=== PATIENT | female | born 1980 | race Caucasian/White ===

== ENCOUNTER → 2022-08-20 | Outpatient (CLI) | payer OTHER, SELFPAY ==
--- NOTE | 2022-08-20 07:35 | MRI_ITS ---
EXAM: MR LEFT LOWER EXTREMITY WITHOUT INTRAVENOUS CONTRAST, KNEE CLINICAL INDICATION: Pain TECHNIQUE: Multiplanar and multisequence MR images of the left knee without intravenous contrast. This report was created using [employer] report generation technology. COMPARISON: None. FINDINGS: BONES/JOINTS: Visualized amount of suprapatellar joint fluid. No fracture. No synovial hypertrophy. No intra-articular body. No bone marrow signal. EXTENSOR MECHANISM: Unremarkable. MEDIAL MENISCUS: Unremarkable. LATERAL MENISCUS: Unremarkable. MEDIAL CAPSULE/SUPPORTING STRUCTURES: Unremarkable. Intact. LATERAL CAPSULE/SUPPORTING STRUCTURES: Unremarkable. Lateral collateral ligamentous complex, inclusive of the popliteal tendon, are intact. ANTERIOR CRUCIATE LIGAMENT: Unremarkable. Intact. POSTERIOR CRUCIATE LIGAMENT: Unremarkable. Intact. MUSCLES: Unremarkable. CARTILAGE: Unremarkable. No focal chondral defects. FLUID: Very small Al''s cyst. No joint effusion. OTHER SOFT TISSUES: Mild prepatellar subcutaneous edema with no organized fluid collections. MRI/Lower Ext Joint Only (Routine) IMPRESSION: 1. Very small Al''s cyst without significant joint effusion. 2. No other significant internal derangement of the knee. Electronically Signed: John Terrell MD at 2:57 EDT ,
== END | disposition home or self-care (01) ==
PROVIDERS: PCP Family Medicine
DX: M23.92 Unspecified internal derangement of left knee (principal)
CPT/HCPCS: 73721

== ENCOUNTER 2024-03-14 08:10 | Emergency (ER) | payer OTHER, SELFPAY ==
[2024-03-14 08:12] VITALS: BP 127/93; PULSE 88; RESP 16; TEMP 35.7; O2SAT 100; BMI 32.1
--- NOTE | 2024-03-14 08:53 | RAD_ITS ---
STUDY: X-RAY - RIGHT WRIST REASON FOR EXAM: Female, 43 years old. INJURY, PAIN TECHNIQUE: 3 views of the right wrist were obtained. COMPARISON: None. FINDINGS: Normal visualized distal radius and ulna. Normal radiocarpal articulation. Normal distal radioulnar articulation. Normal carpal bones. Normal carpal articulations. Normal carpometacarpal articulation of the thumb. Normal second through fifth carpometacarpal articulations. Normal visualized metacarpal bones. The soft tissue structures are unremarkable. There is no demonstrated acute fracture. RAD/Wrist min 3 Views IMPRESSION: Normal x-ray examination of the right wrist. Electronically Signed: Paxton Harvey MD at 9:11 EDT ,
--- OUTSIDE RECORDS SUMMARY | 2024-03-14 10:40 | XMS RPT_ITS | CCD ---
Author Organization [facility] Care Team Providers Care Coremaker Supervisor Name Role Phone Brock Crane MD Primary Care Provider BROCK CRANE Attending BROCK Chaparro Primary Care BROCK Chaparro Referring BROCK Chaparro Primary Care Brock Chaparro MD Primary Care Provider Allergies Allergy Classification Reported Allergen(s) Allergy Type Date of Onset Reaction(s) Facility (16 sources) Cat; Translations: [CATS] Allergy to substance 04-15-201 3 Swelling, Itching [facility] (16 sources) Dog; Translations: [DOGS] Allergy to substance 04-15-201 3 Swelling, Itching [facility] (16 sources) Seasonal allergy; Translations: [SEASONAL ALLERGIES] Allergy to substance 04-15-201 3 Other: See Comments, Unknown [facility] (14 sources) Grass pollen; Translations: [GRASS POLLEN] Drug Allergy 7 Other: See Comments, Unknown [facility] (14 sources) Lactose; Translations: [LACTOSE] Drug Allergy 7 Other: See Comments, Unknown [facility] (14 sources) Hay Fever And Allergy Relief; Translations: [HAY FEVER AND ALLERGY RELIEF] Drug Allergy 7 Other: See Comments, Unknown [facility] (6 sources) house dust allergenic extract; Translations: [HOUSE DUST] Drug Allergy 3 Unknown [facility] (6 sources) Mold Extract; Translations: [MOLD] Drug Allergy 3 Unknown [facility] (6 sources) Tree and shrub pollen; Translations: [TREE AND SHRUB POLLEN] Drug Allergy 3 Unknown [facility] Medications Current Medications Medication Drug Class(es) Dates Sig (Normalized) Sig (Original) [id number] 200 actuat albuterol 0.09 mg/actuat metered dose inhaler (15 sources) beta2-Adrenergic Agonist Start: 10-30-2021 End: 05-25-2022 take 2 puff(s) by inhalation four times daily as needed albuterol HFA (PROVENTIL HFA, VENTOLIN HFA) 90 mcg/actuation inhaler Inhale 200,000 Puffs as instructed four times daily as needed. INHALE 2 PUFFS DIRECTED FOUR TIMES A DAY NEEDED 1 Each 3 05/25/2022 Active Comment on above: Inhale 18 g as instr ucted four times daily as needed. INHALE 2 PUFFS DIRECTED FOUR TIMES A DAY NEEDED Inhale 200,000 Puffs as instructed four times daily as needed. INHALE 2 PUFFS DIRECTED FOUR TIMES A DAY NEEDED fluticasone propionate 0.05 mg/actuat metered dose nasal spray (16 sources) Corticosteroid Start: 11-23-2021 End: 01-17-2023 take 1 spray(s) nasal route once daily as needed fluticasone (FLONASE) 50 mcg/actuation nasal spray USE 1 SPRAY IN EACH NOSTRIL DAILY NEEDED 48 g 5 01/17/2023 Active Comment on above: USE 1 SPRAY IN EACH NOSTRIL DAILY NEEDED LORazepam 0.5 mg oral tablet (6 sources) Benzodiazepine Start: 10-31-2021 End: 08-23-2022 take 0.5 mg by mouth every eight hours as needed for anxiety and anxiety LORazepam (ATIVAN) 0.5 mg Indications: Anxiety Take 1 tablet by mouth every 8 hours as needed for up to 90 days. 90 tablet 2 05/25/2022 08/23/2022 Active Comment on above: Take 1 tablet by elba th every 8 hours as needed. Take 1 tablet by elba th every 8 hours as needed for up to 90 days. meloxicam 15 mg oral tablet (8 sources) Nonsteroidal Anti-inflammatory Drug Start: 12-09-2022 take 5 tablets by mouth once daily for pain meloxicam (MOBIC) 15 mg tablet Indications: Primary osteoarthritis of both knees , Chronic pain of both knees 15 MG ORALLY DAILY FOR PAIN DO NOT TAKE IN CONJUNCTION WITH OTHER NSAIDS. TYLENOL IS OKAY. 30 tablet 5 12/09/2022 Active Start: 08-25-2022 meloxicam (MOB IC) 15 mg tablet 15 MG ORALLY DAILY FOR PAIN DO NOT TAKE IN CONJUNCTION WITH OTHER NSAIDS. TYLENOL IS OKAY. 0 08/25/2022 Active Comment on above: 15 MG ORALLY DAILY F OR PAIN DO NOT TAKE IN CONJUNCTION WITH OTHER NSAIDS. TYLENOL IS OKAY. montelukast 10 mg oral tablet (15 sources) Leukotriene Receptor Antagonist Start: 10-03-19 End: 08-23-19 24 take 1 tablet by mouth once daily montelukast (SINGULAIR) 10 mg tablet Take 1 tablet by mouth once daily. 90 tablet 3 08/23/2023 Active Comment on above: Take 10 mg by mouth once daily. Take 1 tablet by elba th once daily. spironolactone 100 mg oral tablet (18 sources) Aldosterone Antagonist Start: 12-03-19 End: 08-23-19 25 take 1 tablet by mouth once daily spironolactone (ALDACTONE) 100 mg tablet Take 1 tablet by mouth once daily. 90 tablet 3 08/23/2023 08/22/2024 Active Start: 03-07-2022 End: 12-08-2022 take 1 tablet by mouth once daily at bedtime spironolactone (ALDACTONE) 50 mg tablet Take 1 tablet by mouth daily at bedtime. 90 tablet 3 05/25/2022 12/08/2022 Discontinued Start: 12-07-2021 End: 05-25-2022 take 1 tablet by mouth once daily, then take 1 tablet by mouth once daily in the morning spironolactone (ALDACTONE) 100 mg tablet Take 1 tablet by mouth once daily. TAKE 1 TABLET BY MOUTH EVERY DAY IN THE MORNING 90 tablet 3 12/10/2021 05/25/2022 Discontinued (Course of therapy completed) Comment on above: Take 1 tablet by elba th once daily. TAKE 1 TABLET BY MOUTH EVERY DAY IN THE MORNING Take 1 tablet by elba th daily at bedtime. Take 50 mg by mouth daily at bedtime. Take 1 tablet by elba th once daily. Completed/Discontinued Medications Medication Drug Class(es) Dates Sig (Normalized) Sig (Original) escitalopram 10 mg oral tablet (2 sources) Serotonin Reuptake Inhibitor Start: 12-06-2016 End: 05-25-2022 take 1 tablet by mouth once daily escitalopram oxalate (LEXAPRO) 10 mg tablet Take 10 mg by mouth once daily. TAKE 1 TABLET BY MOUTH ONCE A DAY 0 12/06/2016 05/25/2022 Discontinued Comment on above: Take 10 mg by mouth once daily. TAKE 1 TABLET BY MOUTH ONCE A DAY fexofenadine (3 sources) Histamine-1 Receptor Antagonist End: 05-25-2022 FEXOFENADINE HCL (FELTON ORAL) Take by mouth. 0 05/25/2022 Discontinued FEXOFENADINE HCL (FELTON ORAL) Take by mouth. 0 Active Comment on above: Take by mouth. 1 ml triamcinolone acetonide 40 mg/ml injection (1 source) Corticosteroid Start: 08-23-19 End: 08-23-19 triamcinolone acetonide 60 mg injection (KeNALog 40) valACYclovir 500 mg oral tablet (3 sources) Herpesvirus Nucleoside Analog DNA Polymerase Inhibitor, Herpes Simplex Virus Nucleoside Analog DNA Polymerase Inhibitor, Herpes Zoster Virus Nucleoside Analog DNA Polymerase Inhibitor End: 05-25-19 take 1 tablet by mouth once daily valACYclovir 500 mg tablet Take 500 mg by mouth once daily. 0 05/25/2022 Discontinued Comment on above: Take 500 mg by mouth once daily. Problems Active Problems Problem Classification Problem Date Documented Date Episodic/Chronic Allergic reactions (2 sources) Urticaria; Translations: [Urticaria, unspecified] Onset: 08-23-2023 08-23-2023 Episodic Anxiety disorders (20 sources) Anxiety; Translations: [Anxiety disorder, unspecified] Onset: 12-06-2016 Chronic Osteoarthritis (2 sources) Primary gonarthrosis, bilateral; Translations: [Bilateral primary osteoarthritis of knee] Chronic Other non-traumatic joint disorders (1 source) Pain in right knee; Translations: [Pain in joint, lower leg] 12-30-2023 Episodic Other screening for suspected conditions (not mental disorders or infectious disease) (7 sources) Patient encounter status; Translations: [Encounter for screening for diseases of the blood and blood-forming organs and certain disorders involving the immune mechanism] Onset: 08-23-2023 08-23-2023 Episodic Other upper respiratory disease (12 sources) Allergic rhinitis; Translations: [Allergic rhinitis, unspecified] Onset: 12-06-2016 05-27-2022 Chronic Other upper respiratory disease (1 source) Allergic rhinitis due to pollen; Translations: [Allergic rhinitis due to pollen] 08-23-2023 Chronic Other upper respiratory disease (1 source) Allergic rhinitis due to pollen; Translations: [Allergic rhinitis due to pollen, unspecified seasonality] Onset: 05-27-2022 Chronic Screening and history of mental health and substance abuse codes (1 source) Encounter for screening for depression; Translations: [Screening for depression] Onset: 08-23-2023 Episodic Unclassified (1 source) OPENED IN ERROR 08-24-2023 Past or Other Problems Problem Classification Problem Date Documented Da te Episodic/Chronic Other skin disorders (11 sources) Acne; Translations: [Acne, unspecified] Onset: 12-06-2016 06-06-2022 Episodic Results Test Name Value Interpretation Reference Range Facil ity CBC W Auto Differential pane l (Bld)on 08-23-2023 Basophils (Bld) [#/Vol] 0.05 10*3/uL <0.11 k/uL [facility] Basophils/100 WBC (Bld) 0.7 % [facility] Differential cell count method Nom (Bld) Auto [facility] Eosinophils (Bld) [#/Vol] 0.31 10*3/uL <0.46 k/uL [facility] Eosinophils/100 WBC (Bld) 4.4 % [facility] Erythrocyte distribution width (RBC) [Ratio] 12.5 % 11.5 - 15.0 % [facility] Hematocrit (Bld) [Volume fraction] 41.7 % 36.0 - 46.0 % [facility] Hemoglobin (Bld) [Mass/Vol] 13.8 g/dL 11.5 - 15.5 g/dL [facility] Immature granulocytes (Bld) [#/Vol] 0.03 10*3/uL <0.10 k/uL [facility] Immature granulocytes/100 WBC (Bld) 0.4 % [facility] Lymphocytes (Bld) [#/Vol] 1.26 10*3/uL 1.00 - 4.00 k/uL [facility] Lymphocytes/100 WBC (Bld) 17.8 % [facility] MCH (RBC) [Entitic mass] 31.2 pg 26.0 - 34.0 pg [facility] MCHC (RBC) [Mass/Vol] 33.1 g/dL 30.5 - 36.0 g/dL [facility] MCV (RBC) [Entitic vol] 94.1 fL 80.0 - 100.0 fL [facility] Monocytes (Bld) [#/Vol] 0.49 10*3/uL <0.87 k/uL [facility] Monocytes/100 WBC (Bld) 6.9 % [facility] Neutrophils (Bld) [#/Vol] 4.94 10*3/uL 1.45 - 7.50 k/uL [facility] Neutrophils/100 WBC (Bld) 69.8 % [facility] Platelet mean volume (Bld) [Entitic vol] 9.6 fL 9.0 - 12.7 fL [facility] Platelets (Bld) [#/Vol] 254 10*3/uL 150 - 400 k/uL [facility] RBC (Bld) [#/Vol] 4.43 10*6/uL 3.90 - 5.2 0 m/uL [facility] WBC (Bld) [#/Vol] 7.08 10*3/uL 3.70 - 11. 00 k/uL [facility] Basophils (Bld) [#/Vol] 0.05 10*3/uL Normal <0.11 [facility] Comment on above: Order Comment: Speci men Type: BLOOD SPECIMEN Ordering Facility: [facility] Address: [address] [place] [address] Performed By: #### 5 7021-8 #### [facility] CLIA [id number] [address] [place] [address] STATES OF [facility] Basophils/100 WBC (Bld) 0.7 % Normal [facility] Comment on above: Order Comment: Speci men Type: BLOOD SPECIMEN Ordering Facility: [facility] Address: [address] [place] [address] Performed By: #### 5 7021-8 #### [facility] CLIA [id number] [address] [place] [address] OF [facility] Differential cell count method Nom (Bld) Auto Normal [facility] Comment on above: Order Comment: Speci men Type: BLOOD SPECIMEN Ordering Facility: [facility] Address: [address] [place] [address] Performed By: #### 5 7021-8 #### [facility] CLIA [id number] [address] [place] [address] [place] Eosinophils (Bld) [#/Vol] 0.31 10*3/uL Normal <0.46 [facility] Comment on above: Order Comment: Speci men Type: BLOOD SPECIMEN Ordering Facility: [facility] Address: [address] [place] [address] Performed By: #### 5 7021-8 #### [facility] CLIA [id number] [address] [address] [place] Eosinophils/100 WBC (Bld) 4.4 % Normal [facility] Comment on above: Order Comment: Speci men Type: BLOOD SPECIMEN Ordering Facility: [facility] Address: [address] [place] [address] Performed By: #### 5 7021-8 #### [facility] CLIA [id number] [address] [place] [address] [place] Erythrocyte distribution width (RBC) [Ratio] 12.5 % Normal 11.5-15.0 [facility] Comment on above: Order Comment: Speci men Type: BLOOD SPECIMEN Ordering Facility: [facility] Address: [address] [place] [address] Performed By: #### 5 7021-8 #### [facility] CLIA [id number] [address] [place], [place] [address] [place] Hematocrit (Bld) [Volume fraction] 41.7 % Normal 36.0-46.0 [facility] Comment on above: Order Comment: Speci men Type: BLOOD SPECIMEN Ordering Facility: [facility] Address: [address] [place] [address] Performed By: #### 5 7021-8 #### [facility] CLIA [id number] [address] [place], [place] [address] [place] Hemoglobin (Bld) [Mass/Vol] 13.8 g/dL Normal 11.5-15.5 [facility] Comment on above: Order Comment: Speci men Type: BLOOD SPECIMEN Ordering Facility: [facility] Address: [address] [place] [address] Performed By: #### 5 7021-8 #### [facility] CLIA [id number] [address] [place] [address] [place] Immature granulocytes (Bld) [#/Vol] 0.03 10*3/uL Normal <0.10 [facility] Comment on above: Order Comment: Speci men Type: BLOOD SPECIMEN Ordering Facility: [facility] Address: [address] [place] [address] Performed By: #### 5 7021-8 #### [facility] CLIA [id number] [address] [place] [address] [place] Immature granulocytes/100 WBC (Bld) 0.4 % Normal [facility] Comment on above: Order Comment: Speci men Type: BLOOD SPECIMEN Ordering Facility: [facility] Address: [address] [place] [address] Performed By: #### 5 7021-8 #### [facility] CLIA [id number] [address] [place] [address] [place] Lymphocytes (Bld) [#/Vol] 1.26 10*3/uL Normal 1.00-4.00 [facility] Comment on above: Order Comment: Speci men Type: BLOOD SPECIMEN Ordering Facility: [facility] Address: [address] [place] [address] Performed By: #### 5 7021-8 #### [facility] CLIA [id number] [address] [place] [address] [place] Lymphocytes/100 WBC (Bld) 17.8 % Normal [facility] Comment on above: Order Comment: Speci men Type: BLOOD SPECIMEN Ordering Facility: [facility] Address: [address] [place] [address] Performed By: #### 5 7021-8 #### [facility] CLIA [id number] [address] [place] [address] STATES [facility] MCH (RBC) [Entitic mass] 31.2 pg Normal 26.0-34.0 [facility] Comment on above: Order Comment: Speci men Type: BLOOD SPECIMEN Ordering Facility: [facility] Address: [address] [place] [address] Performed By: #### 5 7021-8 #### [facility] CLIA [id number] [address] [place] [address] MCHC (RBC) [Mass/Vol] 33.1 g/dL Normal 30.5-36.0 [facility] Comment on above: Order Comment: Speci men Type: BLOOD SPECIMEN Ordering Facility: [facility] Address: [address] [place] [address] Performed By: #### 5 7021-8 #### [facility] CLIA [id number] [address] [place] [address] MCV (RBC) [Entitic vol] 94.1 fL Normal 80.0-100.0 [facility] Comment on above: Order Comment: Speci men Type: BLOOD SPECIMEN Ordering Facility: [facility] Address: [address] [place] [address] Performed By: #### 5 7021-8 #### [facility] CLIA [id number] [address] [place] [address] [place] Monocytes (Bld) [#/Vol] 0.49 10*3/uL Normal <0.87 [facility] Comment on above: Order Comment: Speci men Type: BLOOD SPECIMEN Ordering Facility: [facility] Address: [address] [place] [address] Performed By: #### 5 7021-8 #### [facility] CLIA [id number] [address] [place] [address] Monocytes/100 WBC (Bld) 6.9 % Normal [facility] Comment on above: Order Comment: Speci men Type: BLOOD SPECIMEN Ordering Facility: [facility] Address: [address] [place] [address] Performed By: #### 5 7021-8 #### [facility] CLIA [id number] [address] [place] [address] [place] Neutrophils (Bld) [#/Vol] 4.94 10*3/uL Normal 1.45-7.50 [facility] Comment on above: Order Comment: Speci men Type: BLOOD SPECIMEN Ordering Facility: [facility] Address: [address] [place] [address] Performed By: #### 5 7021-8 #### [facility] CLIA [id number] [address] [place] [address] [place] Neutrophils/100 WBC (Bld) 69.8 % Normal [facility] Comment on above: Order Comment: Speci men Type: BLOOD SPECIMEN Ordering Facility: [facility] Address: [address] [place] [address] Performed By: #### 5 7021-8 #### [facility] CLIA [id number] [address] [place], [place] [address] [place] Platelet mean volume (Bld) [Entitic vol] 9.6 fL Normal 9.0-12.7 [facility] Comment on above: Order Comment: Speci men Type: BLOOD SPECIMEN Ordering Facility: [facility] Address: [address] [place] [address] Performed By: #### 5 7021-8 #### [facility] CLIA [id number] [address] [place] [address] [place] Platelets (Bld) [#/Vol] 254 10*3/uL Normal 150-400 [facility] Comment on above: Order Comment: Speci men Type: BLOOD SPECIMEN Ordering Facility: [facility] Address: [address] [place] [address] Performed By: #### 5 7021-8 #### [facility] CLIA [id number] [address] [place] [id number] [place] RBC (Bld) [#/Vol] 4.43 10*6/uL Normal 3.90-5.20 [facility] Comment on above: Order Comment: Speci men Type: BLOOD SPECIMEN Ordering Facility: [facility] Address: [address] [place], [place] [address] Performed By: #### 5 7021-8 #### [facility] CLIA [id number] [address] [place] [address] [facility] WBC (Bld) [#/Vol] 7.08 10*3/uL Normal 3.70-11.00 [facility] Comment on above: Order Comment: Speci men Type: BLOOD SPECIMEN Ordering Facility: [facility] Address: [address] [place], [place] [address] Performed By: #### 5 7021-8 #### [facility] CLIA [id number] [address] [place] [address] [facility] CNOVon 08-23-2023 CNOV Office Visit (FAMMAS ) RICARDO GRAVES ([id number]) 1980 F Date Time Provider Department 08/23/23 8:00 AM BROCK CRANE [facility] During your visit today, we recorded the following information about you: Temperature Pulse Respiration Blood pressure 96 degrees 76/minute 15/minute 116/78 Weight Height 74.4 kg 1.6 m Agnes Mcgovern LPN 08/24/2023 10:56 AM Signed Patient in the office today for an annual Wellness exam. Refills entered Health Maintenance Due: Hepatitis C Screening Never done HIV Screening Never done DTaP,Tdap,Td Vaccine(1 - Tdap) Never done Hepatitis B Vaccine(1 of 3 - 19+ 3-dose series) Never done HPV Testing due on 11/27/2018 Mammogram Screening Never done Covid-19 Vaccine( season) Never done Depression Assessment Never done Agnes Mcgovern LPN August 23, 2023 8:12 AM Kenalog injection administered without difficulty, and documented in chart. Patient tolerated injection well, and denied pain or discomfort at injection site. Agnes Mcgovern LPN August 23, 2023 9:25 AM Brock Crane MD 08/24/2023 10:56 AM Signed Subjective Ricardo Graves is a 42 year old female. Ricardo presents today for her annual wellness visit. Additionally she follows up for her anxiety, allergies,. She also complains today of hives. She is unsure of the cause. Review of Systems Constitutional: Negative. HENT: Negative. Eyes: Negative. Respiratory: Negative. Cardiovascular: Negative. Gastrointestinal: Negative. Endocrine: Negative. Genitourinary: Negative. Musculoskeletal: Negative. Skin: Negative. Allergic/Immunologic: Negative. Neurological: Negative. Hematological: Negative. Psychiatric/Behaviora l: Negative. PAST SURGICAL HISTORY Procedure Laterality Date EXTRACTION, ERUPTED TOOTH OR EXPOSED ROOT (ELEVATION AND/OR FORCEPS REMOVAL) 2006 PAST MEDICAL HISTORY Diagnosis Date Acne 12/06/2016 Acne 12/06/2016 Anxiety 12/06/2016 Anxiety disorder, unspecified 05/25/2022 Bicornuate uterus FAMILY HISTORY Problem Relation Age of Onset Diabetes Maternal Grandmother Diabetes Paternal Grandmother Hypertension Maternal Grandmother Heart Maternal Grandmother Arthritis Maternal Grandmother COPD Maternal Grandmother Cancer Paternal Grandfather prostate other (blood disorder [Other]) Other C protien deficiency Social History Tobacco Use Smoking status: Never Passive exposure: Never Smokeless tobacco: Never Vaping Use Vaping Use: Never used Substance Use Topics Alcohol use: Yes Comment: rarely Drug use: No ALLERGIES Allergen Reactions Grass Pollen Unknown Hay Fever And Aller* Unknown Lactose Unknown Cats Swelling, Itching Dogs Swelling, Itching House Dust Unknown Mold Unknown Seasonal Allergies Unknown Tree And Shrub Poll* Unknown MEDICATIONS: fluticasone (FLONASE) 50 mcg/actuation nasal sprayUSE 1 SPRAY IN EACH NOSTRIL DAILY NEEDEDDisp: 48 gRfl: 5 meloxicam (MOBIC) 15 mg [id number] MG ORALLY DAILY FOR PAIN DO NOT TAKE IN CONJUNCTION WITH OTHER NSAIDS. TYLENOL IS OKAY.Disp: 30 tabletRfl: 5 albuterol HFA (PROVENTIL HFA, VENTOLIN HFA) 90 mcg/actuation inhalerInhale 200,000 Puffs as instructed four times daily as needed. INHALE 2 PUFFS DIRECTED FOUR TIMES A DAY NEEDEDDisp: 1 EachRfl: 3 spironolactone (ALDACTONE) 100 mg tabletTake 1 tablet by mouth once daily.Disp: 90 tabletRfl: 3 montelukast (SINGULAIR) 10 mg tabletTake 1 tablet by mouth once daily.Disp: 90 tabletRfl: 3 Allergies, past surgical history, family history and past medical history were reviewed per this encounter. Medications were reviewed and verified. Objective BP 116/78 (BP Site: Left Arm, BP Position: Sitting, BP Cuff Size: Large Adult) Pulse 76 Temp (!) 35.6 ?C (96 ?F) (Temporal) Resp 15 Ht 160 cm (5' 3 ) Wt 74.4 kg (164 lb 2 oz) LMP 11/18/2013 SpO2 96% BMI 29.07 kg/m? Physical Exam Vitals reviewed. Constitutional: Appearance: Normal appearance. HENT: Head: Normocephalic and atraumatic. Nose: Nose normal. Eyes: Extraocular Movements: Extraocular movements intact. Pupils: Pupils are equal, round, and reactive to light. Cardiovascular: Rate and Rhythm: Normal rate and regular rhythm. Pulmonary: Effort: Pulmonary effort is normal. Breath sounds: Normal breath sounds. Abdominal: General: Bowel sounds are normal. Palpations: Abdomen is soft. Musculoskeletal: General: Normal range of motion. Cervical back: Normal range of motion and neck supple. Skin: General: Skin is warm and dry. Capillary Refill: Capillary refill takes less than 2 seconds. Findings: Rash present. Neurological: General: No focal deficit present. Mental Status: She is alert and oriented to person, place, and time. Mental status is at baseline. Psychiatric: Mood and Affect: Mood normal. Behavior: Behavior normal. Assessment (more content not included)... Normal [facility] Comprehensive metabolic 2000 panelon 08-23-2023 Albumin [Mass/Vol] 3.8 g/dL 3.2 - 5.0 g/dL Cl [facility] ALP [Catalytic activity/Vol] 62 U/L 45 - 117 U/L [facility] ALT [Catalytic activity/Vol] 18 U/L 13 - 61 U/L [facility] Anion gap [Moles/Vol] 3 mmol/L Low 5 - 16 mmol/L [facility] AST [Catalytic activity/Vol] 15 U/L 8 - 34 U/L [facility] Bilirubin [Mass/Vol] 0.4 mg/dL 0.2 - 1.0 mg/dL [facility] Calcium [Mass/Vol] 9.6 mg/dL 8.5 - 10. 5 mg/dL [facility] Chloride [Moles/Vol] 109 mmol/L High 98 - 107 mmol/L [facility] CO2 [Moles/Vol] 27 mmol/L 21 - 32 mmol/L [facility] Creatinine [Mass/Vol] 0.85 mg/dL 0.51 - 0.95 mg/dL [facility] Estimated Glomerular Filtration Rate 89 mL/min/1.73m >=60 mL/min/1.73m [facility] Glucose [Mass/Vol] 83 mg/dL 70 - 100 mg/dL [facility] Potassium [Moles/Vol] 4.6 mmol/L 3.5 - 5.1 mmol/L [facility] Protein [Mass/Vol] 6.8 g/dL 6.0 - 8.5 g/dL [facility] Sodium [Moles/Vol] 139 mmol/L 136 - 145 mmol/L [facility] Urea nitrogen [Mass/Vol] 21 mg/dL 7 - 26 mg/dL [facility] Albumin [Mass/Vol] 3.8 g/dL Normal 3.2-5.0 [facility] Comment on above: Order Comment: Speci men Type: BLOOD SPECIMEN Ordering Facility: [facility] Address: [address] [place] [address] Performed By: #### 2 4331-1 #### [facility] CLIA [id number] [address] [place] [address] [place] [facility] CLIA [id number] [address] [place] #### 20436-6 #### [facility] CLIA [id number] [address] [place] 2158208 [place] ALP [Catalytic activity/Vol] 62 U/L Normal 45-117 [facility] Comment on above: Order Comment: Speci men Type: BLOOD SPECIMEN Ordering Facility: [facility] Address: [address] [place] [address] Performed By: #### 2 4331-1 #### [facility] CLIA [id number] [address] [place] [address] [facility] CLIA [id number] [address] [place], [place] [address] [place] [address] [place] #### 44487-1 #### [facility] CLIA [id number] [address] [place] [address] [place] ALT [Catalytic activity/Vol] 18 U/L Normal 13-61 [facility] Comment on above: Order Comment: Speci men Type: BLOOD SPECIMEN Ordering Facility: [facility] Address: [address] [place] [address] Result Comment: Resu lts may be falsely depressed after the administration of Sulfasalazine and/or Sulfapyridine. Performed By: #### 2 4331-1 #### [facility] CLIA [id number] [address] [place] 2158208 [place] [facility] CLIA [id number] [address] [place], [place] [address] [place] [address] [place] #### 68042-1 #### [facility] CLIA [id number] [address] [place] [address] [place] Anion gap [Moles/Vol] 3 mmol/L Low 5-16 [facility] Comment on above: Order Comment: Speci men Type: BLOOD SPECIMEN Ordering Facility: [facility] Address: [address] [place] [address] Performed By: #### 2 4331-1 #### [facility] CLIA [id number] [address] [place] [address] [place] [facility] CLIA [id number] [address] [place] [address] [place] #### 04485-0 #### [facility] CLIA [id number] [address] [place] [address] [place] AST [Catalytic activity/Vol] 15 U/L Normal 8-34 [facility] Comment on above: Order Comment: Speci men Type: BLOOD SPECIMEN Ordering Facility: [facility] Address: [address] [place] [address] Result Comment: Resu lts may be falsely depressed after the administration of Sulfasalazine and/or Sulfapyridine. Performed By: #### 2 4331-1 #### [facility] CLIA [id number] [address] CLIA [id number] [address] #### 04375-9 #### [facility] CLIA [id number] [address] [place] [address] [place] Bilirubin [Mass/Vol] 0.4 mg/dL Normal 0.2-1.0 [facility] Comment on above: Order Comment: Speci men Type: BLOOD SPECIMEN Ordering Facility: [facility] Address: [address] [place] [address] Performed By: #### 2 4331-1 #### [facility] CLIA [id number] [address] [place], [place] [address]N LAB CLIA [id number] [address] #### 85800-4 #### [facility] CLIA [id number] [address] [place], [place] [address] [place] Calcium [Mass/Vol] 9.6 mg/dL Normal 8.5-10.5 [facility] Comment on above: Order Comment: Speci men Type: BLOOD SPECIMEN Ordering Facility: [facility] Address: [address] [place] [address] Performed By: #### 2 4331-1 #### [facility] CLIA [id number] [address] [place] [address] [place] [facility] CLIA [id number] [address] [place] [address] [place] [facility] OF [place] #### 66092-5 #### [facility] CLIA [id number] [address] [place] [address] [place] Chloride [Moles/Vol] 109 mmol/L High 98-107 [facility] Comment on above: Order Comment: Speci men Type: BLOOD SPECIMEN Ordering Facility: [facility] Address: [address] [place] [address] Performed By: #### 2 4331-1 #### [facility] CLIA [id number] [address] [place], [place] [address] [place] [facility] CLIA [id number] [address] [place] [address] [place] #### 38102-6 #### [facility] CLIA [id number] [address] [place], [place] [address] [place] CO2 [Moles/Vol] 27 mmol/L Normal 21-32 [facility] Comment on above: Order Comment: Speci men Type: BLOOD SPECIMEN Ordering Facility: [facility] Address: [address] [place] [address] Performed By: #### 2 4331-1 #### [facility] CLIA [id number] [address] [place], [place] [address] [place] [facility] [place] [facility] CLIA [id number] [address] [place] [address] [place] #### 34693-4 #### [facility] CLIA [id number] [address] [place], [place] [address] [place] Creatinine [Mass/Vol] 0.85 mg/dL Normal 0.51-0.95 [facility] Comment on above: Order Comment: Speci men Type: BLOOD SPECIMEN Ordering Facility: [facility] Address: [address] [place] [address] Result Comment: Cyndi ents receiving either N-Acetylcysteine (NAC) or Metamizole prior to venipuncture, may have falsely depressed results. Performed By: #### 2 4331-1 #### [facility] CLIA [id number] [address] [place] [address] [facility] CLIA [id number] [address] #### 95559-7 #### [facility] CLIA [id number] [address] [place], [place] [address] [facility] Creatinine and Glomerular filtration rate.predicted panel (S/P/Bld) 89 mL/min/1.73m??? Normal >=60 [facility] Comment on above: Order Comment: Speci men Type: BLOOD SPECIMEN Ordering Facility: [facility] Address: [address] [place], [place] [address] [address] Result Comment: Kathryn mated Glomerular Filtration Rate (eGFR) is calculated using the 2020 CKD-EPI creatinine equation. This equation utilizes serum creatinine, sex, and age as parameters. The creatinine assay has traceable calibration to isotope dilution-mass spectrometry. Refer to KDIGO guidelines for clinical interpretation. In patients with unstable renal function, e.g. those with acute kidney injury, the eGFR may not accurately reflect actual GFR. Performed By: #### 2 4331-1 #### [facility] CLIA [id number] [address] [place], [place] [address] [facility] CLIA [id number] [address] #### 77508-0 #### [facility] CLIA [id number] [address] [place], [place] [address] [place] Glucose [Mass/Vol] 83 mg/dL Normal 70-100 [facility] Comment on above: Order Comment: Speci men Type: BLOOD SPECIMEN Ordering [facility]: [facility] Address: [address] [facility] [place] [id number] Result Comment: The [place] Diabetes Association (ADA) provides guidance for cutoff values for fasting glucose and random glucose. The ADA defines fasting as no caloric intake for at least 8 hours. Fasting plasma glucose results between 100 to 125 mg/dL indicate increased risk for diabetes (prediabetes). Fasting plasma glucose results greater than or equal to 126 mg/dL meet the criteria for diagnosis of diabetes. In the absence of unequivocal hyperglycemia, results should be confirmed by repeat testing. In a patient with classic symptoms of hyperglycemia or hyperglycemic crisis, random plasma glucose results greater than or equal to 200 mg/dL meet the criteria for diagnosis of diabetes. Reference: Standards of Medical Care in Diabetes 2016, [place] Diabetes Association. Diabetes Care. 2016.39(Suppl 1). Results may be falsely elevated after the administration of Sulfapyridine. Results may be falsely depressed after the administration of Sulfasalazine. Performed By: #### 2 4331-1 #### [facility] CLIA [id number] [address] [place] [address] [facility] CLIA [id number] [address] [place] [address] [place] #### 60942-1 #### [facility] CLIA [id number] [address] [place] [address] [place] Potassium [Moles/Vol] 4.6 mmol/L Normal 3.5-5.1 [facility] Comment on above: Order Comment: Speci men Type: BLOOD SPECIMEN Ordering Facility: [facility] Address: [address] [place] [address] Performed By: #### 2 4331-1 #### [facility] CLIA [id number] [address] [place] [address] [place] [facility] CLIA [id number] [address] [place] [address] [place] #### 11222-6 #### [facility] CLIA [id number] [address] [place] [address] [place] Protein [Mass/Vol] 6.8 g/dL Normal 6.0-8.5 [facility] Comment on above: Order Comment: Speci men Type: BLOOD SPECIMEN Ordering Facility: [facility] Address: [address] [place], [place] [address] Performed By: #### 2 4331-1 #### [facility] CLIA [id number] [address] [place] [address] [facility] CLIA [id number] [facility] [place] [address] [place] #### 55601-9 #### [facility] CLIA [id number] [address] [place] [address] [place] Sodium [Moles/Vol] 139 mmol/L Normal 136-145 [facility] Comment on above: Order Comment: Speci men Type: BLOOD SPECIMEN Ordering Facility: [facility] Address: [address] [place] [address] Performed By: #### 2 4331-1 #### [facility] CLIA [id number] [address] [place], [place] [address] [facility] CLIA [id number] [address] [place] [address] [place] #### 61728-8 #### [facility] CLIA [id number] [address] [place] [address] [place] Urea nitrogen [Mass/Vol] 21 mg/dL Normal 7-26 [facility] Comment on above: Order Comment: Speci men Type: BLOOD SPECIMEN Ordering Facility: [facility] Address: [address] [place] [address] Performed By: #### 2 4331-1 #### [facility] CLIA [id number] [address] [place] [address] STATES [facility] CLIA [id number] [address] [place] [address] [place] #### 00762-1 #### [facility] CLIA [id number] [address] [place], [place] [address] [place] Lipid 1996 panelon 4 Cholesterol [Mass/Vol] 191 mg/dL 0 - 199 mg/dL [facility] Cholesterol in HDL [Mass/Vol] 74 mg/dL >40 mg/dL [facility] Cholesterol in LDL [Mass/Vol] 100 mg/dL 0 - 129 mg/dL [facility] Cholesterol in LDL/Cholesterol in HDL [Mass ratio] 1.35 {ratio} <2.54 [facility] Cholesterol in VLDL [Mass/Vol] 17 mg/dL <30 mg/dL [facility] Cholesterol non HDL [Mass/Vol] 117 mg/dL <130 mg/dL [facility] Cholesterol.total/C holesterol in HDL [Mass ratio] 2.58 {ratio} <5.10 [facility] Fasting Time 12 hrs [facility] Triglyceride [Mass/Vol] 83 mg/dL 30 - 149 mg/dL [facility] Cholesterol [Mass/Vol] 191 mg/dL Normal 0-199 [facility] Comment on above: Order Comment: Specjigna mora Type: BLOOD SPECIMEN Ordering Facility: [facility] Address: [address] [place] [address] Result Comment: <200 mg/dL, Desirable 200-239 mg/dL, Borderline high >239 mg/dL, High Performed By: #### 2 4331-1 #### [facility] CLIA [id number] [address] [place] [address] OF [facility] CLIA [id number] [address] #### 01878-2 #### [facility] CLIA [id number] [address] [place] [address] Cholesterol in HDL [Mass/Vol] 74 mg/dL Normal >40 [facility] Comment on above: Order Comment: José Antonio mora Type: BLOOD SPECIMEN Ordering Facility: [facility] Address: [address] [place] [address] Result Comment: 40-5 9 mg/dL, Acceptable >59 mg/dL, High: Negative risk factor for coronary heart disease <40 mg/dL, Low: Positive risk factor for coronary heart disease Performed By: #### 2 4331-1 #### [facility] CLIA [id number] [address] [place] 2158208 [facility] CLIA [id number] [address] [place] [address] [facility] #### 39700-6 #### [facility] CLIA [id number] [address] [place] 2158208 [facility] Cholesterol in LDL [Mass/Vol] 100 mg/dL Normal 0-129 [facility] Comment on above: Order Comment: José Antonio men Type: BLOOD SPECIMEN Ordering Facility: [facility] Address: [address] [place] [address] Result Comment: <100 mg/dL, Optimal 100-129 mg/dL, Near optimal/above optimal 130-159 mg/dL, Borderline high 160-189 mg/dL, High >189 mg/dL, Very high Secondary prevention optimal LDL Cholesterol levels are recommended to be < 70 mg/dL Performed By: #### 2 4331-1 #### [facility] CLIA [id number] [address] [place] 2158208 [facility] CLIA [id number] [address] [place], [place] [address] [place] [address] #### 80743-9 #### [facility] CLIA [id number] [address] [place], [place] [address] [facility] Cholesterol in LDL/Cholesterol in HDL [Mass ratio] 1.35 {ratio} Normal <2.54 [facility] Comment on above: Order Comment: José Antonio men Type: BLOOD SPECIMEN Ordering Facility: [facility] Address: [address] [place] [address] Result Comment: Refkris bagley: 1. National Cholesterol Education Program ATP III Guideline At-A-Glance Quick Desk Reference: National Heart, Lung, and Blood [place]. National Institutes of Health. 2001: NIH Publication No. 01-3305. 2. An International Atherosclerosis Society position paper: global recommendations for the management of dyslipidemia: executive summary, Atherosclerosis. 2014: 232(2):410-413. Performed By: #### 2 4331-1 #### [facility] CLIA [id number] [address] [place] [address] [facility] CLIA [id number] [address] [place] [address] [place] #### 39296-2 #### [facility] CLIA [id number] [address] [place] [address] [place] Cholesterol in VLDL [Mass/Vol] 17 mg/dL Normal <30 [facility] Comment on above: Order Comment: Speci men Type: BLOOD SPECIMEN Ordering Facility: [facility] Address: [address] [place] [address] Performed By: #### 2 4331-1 #### [facility] CLIA [id number] [address] [place], [place] [address] [facility] CLIA [id number] [address] [place] [address] #### 06374-6 #### [facility] CLIA [id number] [address] [place], [place] [address] [place] Cholesterol non HDL [Mass/Vol] 117 mg/dL Normal <130 [facility] Comment on above: Order Comment: Speci men Type: BLOOD SPECIMEN Ordering Facility: [facility] Address: [address] [place] [address] Result Comment: <130 mg/dL, Optimal 130-159 mg/dL, Near optimal/above optimal 160-189 mg/dL, Borderline high 190-219 mg/dL, High >219 mg/dL, Very high Secondary prevention optimal non HDL Cholesterol levels are recommended to be <100 mg/dL Performed By: #### 2 4331-1 #### [facility] CLIA [id number] [address] [place] [address] [place] STATES OF [facility] CLIA [id number] [address] STATES [place] #### 44599-0 #### [facility] CLIA [id number] [address] [place] [address] Cholesterol.total/C holesterol in HDL [Mass ratio] 2.58 {ratio} Normal <5.10 [facility] Comment on above: Order Comment: Speci men Type: BLOOD SPECIMEN Ordering Facility: [facility] Address: [address] [place] [address] Performed By: #### 2 4331-1 #### [facility] CLIA [id number] [address] [place], [place] [address] LAB CLIA [id number] [address] #### 92129-0 #### [facility] CLIA [id number] [address] [place] [address] FASTING TIME 12 hrs Normal [facility] Comment on above: Order Comment: Speci men Type: BLOOD SPECIMEN Ordering Facility: [facility] Address: [address] [place] [address] Performed By: #### 2 4331-1 #### [facility] CLIA [id number] [address] [place], [place] [address] LAB CLIA [id number] [address] [place] [address] #### 75898-5 #### [facility] CLIA [id number] [address] [place] [address] [place] Triglyceride [Mass/Vol] 83 mg/dL Normal 30-149 [facility] Comment on above: Order Comment: Speci men Type: BLOOD SPECIMEN Ordering Facility: [facility] Address: [address] [place], [place] [address] Result Comment: <150 mg/dL, Normal 150-199 mg/dL, Borderline high 200-499 mg/dL, High >499 mg/dL, Very high Patients receiving either N-Acetylcysteine (NAC) or Metamizole prior to venipuncture, may have falsely depressed results. Performed By: #### 2 4331-1 #### [facility] CLIA [id number] [address] [place] [address] [facility] CLIA [id number] [address] [place] [address] [facility] #### 84145-1 #### [facility] CLIA [id number] [address] [place] [address] [place] CBC W/DIFFon 09-08-2021 BASO ABS 0.10 K/CU MM Normal 0-0.2 [facility] Comment on above: Performed By: #### L 200.27488 #### [facility] [address] [place] [address] Basophils/100 WBC (Bld) 0.5 % Normal 0-2 [facility] Comment on above: Performed By: #### L 200.70607 #### [facility] [address] [place] [address] EOS ABS 0.20 K/CU MM Normal 0-0.5 [facility] Comment on above: Performed By: #### L 200.15229 #### [facility] [address] [place] [address] Eosinophils/100 WBC (Bld) 1.6 % Normal 0-5 [facility] Comment on above: Performed By: #### L 200.74718 #### [facility] [address] [place] [address] Erythrocyte distribution width (RBC) [Ratio] 12.6 % Normal 11-14.5 [facility] Comment on above: Performed By: #### L 200.78438 #### [facility] [address] [place] [address] Hematocrit (Bld) [Volume fraction] 40.3 % Normal 35.0-47.0 [facility] Comment on above: Performed By: #### L 200.00377 #### [facility] [address] [place] [address] Hemoglobin (Bld) [Mass/Vol] 13.5 g/dL Normal 11.5-15.5 [facility] Comment on above: Performed By: #### L 200.43995 #### [facility] [address] [place] [address] IMMATR GRAN ABS 0.00 K/CU MM Normal Less than 2 [facility] Comment on above: Performed By: #### L 200.74387 #### [facility] [address] [place] [address] IMMATURE GRAN % 0.4 % Normal Less than 2 [facility] Comment on above: Performed By: #### L 200.52009 #### [facility] [address] [place] [address] LYMPH ABS 2.20 K/CU MM Normal 0.9-4.4 [facility] Comment on above: Performed By: #### L 200.51657 #### [facility] [address] [place] [address] Lymphocytes/100 WBC (Bld) 19.1 % Low 20-40 [facility] Comment on above: Performed By: #### L 200.91307 #### [facility] [address] [place] [address] MCHC (RBC) [Mass/Vol] 33.5 g/dL Normal 32.0-36.0 [facility] Comment on above: Performed By: #### L 200.37407 #### [facility] [address] [place] [address] MCV (RBC) [Entitic vol] 91.2 fL Normal 80.0-99.0 [facility] Comment on above: Performed By: #### L 200.46803 #### [facility] [address] [place] [address] MONO ABS 0.70 K/CU MM Normal 0.1-1.1 [facility] Comment on above: Performed By: #### L 200.36094 #### [facility] [address] [place] [address] Monocytes/100 WBC (Bld) 6.0 % Normal 2-10 [facility] Comment on above: Performed By: #### L 200.67574 #### [facility] [address] [place] [address] NEUTROPHIL ABS 8.30 K/CU MM Normal 2.0-8.3 [facility] Comment on above: Performed By: #### L 200.44399 #### [facility] [address] [place] [address] Neutrophils/100 WBC (Bld) 72.4 % Normal 45-75 [facility] Comment on above: Performed By: #### L 200.10775 #### [facility] [address] [place] [address] Nucleated RBC/100 WBC (Bld) [Ratio] 0.0 % Normal Less than 1 [facility] Comment on above: Performed By: #### L 200.42757 #### [facility] [address] [place] [address] Platelet mean volume (Bld) [Entitic vol] 10.3 fL Normal 9.4-12.4 [facility] Comment on above: Performed By: #### L 200.60632 #### [facility] [address] [place] [address] PLT 277 K/CU MM Normal 150-450 [facility] Comment on above: Performed By: #### L 200.62930 #### [facility] [address] [place] [address] RBC 4.42 M/CU MM Normal 3.90-5.30 [facility] Comment on above: Performed By: #### L 200.23252 #### [facility] [address] [place] [address] WBC 11.4 K/CUMM High 4.5-11.0 [facility] Comment on above: Performed By: #### L 200.75555 #### [facility] [address] [place], [place] [address] CMPon 09-08-2021 Albumin [Mass/Vol] 3.8 g/dL Normal 3.2-5.0 [facility] Comment on above: Performed By: #### L 500.20307, L500.50962, L500.82950 #### [facility] [address] [place] [address] Albumin/Globulin [Mass ratio] 1.4 {ratio} Normal 0.8-2.0 [facility] Comment on above: Performed By: #### L 500.36422, L500.78403, L500.98352 #### [facility] [address] [place] [address] ALK PHOS 60 U/L Normal 45-117 [facility] Comment on above: Performed By: #### L 500.17863, L500.52993, L500.45719 #### [facility] [address] [place], [place] [address] ALT [Catalytic activity/Vol] 22 U/L Normal 13-61 [facility] [facility] Comment on above: Result Comment: RESU LTS MAY BE FALSELY DEPRESSED AFTER THE ADMINISTRATION OF SULFASALAZINE AND/OR SULFAPYRIDINE. Performed By: #### L 500.34893, L500.79066, L500.20342 #### [facility] [address] [place] [address] Anion gap [Moles/Vol] 7 mmol/L Normal 5-16 [facility] Comment on above: Performed By: #### L 500.72508, L500.68121, L500.94959 #### [facility] [address] [place] [address] AST [Catalytic activity/Vol] 20 U/L Normal 8-34 [facility] Comment on above: Result Comment: RESU LTS MAY BE FALSELY DEPRESSED AFTER THE ADMINISTRATION OF SULFASALAZINE AND/OR SULFAPYRIDINE. Performed By: #### L 500.78828, L500.19509, L500.45939 #### [facility] [address] [place] [address] BILI TOTAL 0.30 MG/DL Normal 0.2-1.0 [facility] Comment on above: Performed By: #### L 500.40144, L500.97607, L500.44981 #### [facility] [address] [place] [address] Calcium [Mass/Vol] 9.6 mg/dL Normal 8.5-10.5 [facility] Comment on above: Result Comment: NOTE NEW NORMAL RANGE DUE TO REAGENT CHANGE Performed By: #### L 500.87505, L500.73952, L500.28238 #### [facility] [address] [place] [address] Chloride [Moles/Vol] 106 mmol/L Normal 98-107 [facility] Comment on above: Performed By: #### L 500.08936, L500.39145, L500.08141 #### [facility] [address] [place], [place] [id number] CO2 [Moles/Vol] 28.0 mmol/L Normal 21-32 [facility] Comment on above: Performed By: #### L 500.38182, L500.05288, L500.64470 #### [facility] [address] [place] [address] Creatinine [Mass/Vol] 1.07 mg/dL High 0.510-0.950 [facility] Comment on above: Result Comment: Cyndi ents receiving either N-Acetylcysteine (NAC) or Metamizole prior to venipuncture, may have falsely depressed results. Performed By: #### L 500.45144, L500.40803, L500.92266 #### [facility] [address] [place] [address] Globulin (S) [Mass/Vol] 2.8 g/dL Normal 2.2-4.2 [facility] Comment on above: Performed By: #### L 500.46431, L500.02179, L500.49235 #### [facility] [address] [place] [address] Glucose [Mass/Vol] 75 mg/dL Normal 70-100 [facility] Comment on above: Result Comment: 70-1 00- Normal Fasting; 100-125 Impaired Fasting; greater than 126 on more than one result- Diabetes. ADA guidelines. Results may be falsely elevated after the administration of Sulfapyridine. Results may be falsely depressed after the administration of Sulfasalazine. Performed By: #### L 500.01433, L500.61711, L500.33341 #### [facility] [address] [place] [address] Potassium [Moles/Vol] 4.2 mmol/L Normal 3.5-5.1 [facility] Comment on above: Performed By: #### L 500.38575, L500.56272, L500.52838 #### [facility] [address] [place] [address] Protein [Mass/Vol] 6.6 g/dL Normal 6.0-8.5 [facility] Comment on above: Performed By: #### L 500.14192, L500.57638, L500.84483 #### [facility] [address] [place] [address] Sodium [Moles/Vol] 141 mmol/L Normal 136-145 [facility] Comment on above: Performed By: #### L 500.18144, L500.63526, L500.16731 #### [facility] [address] [place] [address] Urea nitrogen [Mass/Vol] 13 mg/dL Normal 7-26 [facility] Comment on above: Performed By: #### L 500.02870, L500.12455, L500.48036 #### [facility] [address] [place] [address] Urea nitrogen/Creatinine [Mass ratio] 12 mg/mg Low 15-24 [facility] Comment on above: Performed By: #### L 500.97228, L500.56361, L500.98585 #### [facility] [address] [place] [address] GFR ESTon 09-08-2021 IF AMER Greater than 60 Normal [facility] Comment on above: Performed By: #### L 500.26792, L500.09580, L500.87580 #### [facility] [address] [place] [address] IF non-AFR AMER 57 Normal [facility] Comment on above: Performed By: #### L 500.51213, L500.13202, L500.96135 #### [facility] [address] [place] [address] LIPIDon 09-08-2021 CHOL 157 MG/dL Normal 0-199 [facility] Comment on above: Performed By: #### L 500.70630, L500.98947, L500.87932 #### [facility] [address] [place] [address] Cholesterol in HDL [Mass/Vol] 75 mg/dL Normal GREATER THAN 40 [facility] Comment on above: Result Comment: Cyndi ents receiving Metamizole prior to venipuncture, may have falsely depressed results. Performed By: #### L 500.85387, L500.62108, L500.23021 #### [facility] [address] [place] [address] Cholesterol in LDL [Mass/Vol] 66 mg/dL Normal [facility] Comment on above: Result Comment: ___C HOLESTEROL/HDL RATIO RISK___ CHD RISK = Total CHOL LDL HDL (CHOL/HDL) Recommended <200 <130 >40 <3.4 Borderline 200-239 130-159 3.4-4.99 High >240 >160 >5.0 Performed By: #### L 500.01641, L500.46251, L500.11718 #### [facility] [address] [place] [address] Triglyceride [Mass/Vol] 80 mg/dL Normal 30-149 [facility] Comment on above: Result Comment: Cyndi ents receiving either N-Acetylcysteine (NAC) or Metamizole prior to venipuncture, may have falsely depressed results. Performed By: #### L 500.84781, L500.17239, L500.98830 #### [facility] [address] [phone] Vital Signs Date Time Vital Sign Value Performing Clinician Faci lity 08-23-2023 08:07-0400 Body height 160 cm Brock Crane MD Work Phone: [facility] 08-23-2023 08:07-0400 Body temperature 96.01 [degF] Brock Crane MD Work Phone: [facility] 08-23-2023 08:07-0400 Body weight 74.45 kg Brock Crane MD Work Phone: [facility] 08-23-2023 08:07-0400 Diastolic blood pressure 78 mm[Hg] Brock Crane MD Work Phone: [facility] 08-23-2023 08:07-0400 Heart rate 76 /min Brock Crane MD Work Phone: [facility] 08-23-2023 08:07-0400 Respiratory rate 15 /min Brock Crane MD Work Phone: [facility] 08-23-2023 08:07-0400 SaO2% (BldA) [Mass fraction] 96 % Brock Crane MD Work Phone: [facility] 08-23-2023 08:07-0400 Systolic blood pressure 116 mm[Hg] Brock Crane MD Work Phone: [facility] 06-06-2022 08:15-0500 Body height 160 cm Brock Crane MD Work Phone: [facility] 06-06-2022 08:15-0500 Body temperature 97.5 [degF] Brock Crane MD Work Phone: [facility] 06-06-2022 08:15-0500 Body weight 61.46 kg Brock Crane MD Work Phone: [facility] 06-06-2022 08:15-0500 Diastolic blood pressure 76 mm[Hg] Brock Crane MD Work Phone: [facility] 06-06-2022 08:15-0500 Heart rate 80 /min Brock Crane MD Work Phone: [facility] 06-06-2022 08:15-0500 Respiratory rate 16 /min Brock Crane MD Work Phone: [facility] 06-06-2022 08:15-0500 SaO2% (BldA) [Mass fraction] 99 % Brock Crane MD Work Phone: [facility] 06-06-2022 08:15-0500 Systolic blood pressure 112 mm[Hg] Brock Crane MD Work Phone: [facility] 05-25-2022 11:07-0500 Body height 152.4 cm Brock Crane MD Work Phone: [facility] 05-25-2022 11:07-0500 Body temperature 97.59 [degF] Brock Crane MD Work Phone: [facility] 05-25-2022 11:07-0500 Body weight 63.59 kg Brock Crane MD Work Phone: [facility] 05-25-2022 11:07-0500 Diastolic blood pressure 82 mm[Hg] Brock Crane MD Work Phone: [facility] 05-25-2022 11:07-0500 Heart rate 76 /min Brock Crane MD Work Phone: [facility] 05-25-2022 11:07-0500 Respiratory rate 18 /min Brock Crane MD Work Phone: [facility] 05-25-2022 11:07-0500 SaO2% (BldA) [Mass fraction] 94 % Brock Crane MD Work Phone: [facility] 05-25-2022 11:07-0500 Systolic blood pressure 122 mm[Hg] Brock Crane MD Work Phone: [facility] Encounters Encounter Date Encounter Type Care Provider Facility Start: 12-30-2023 Refill Brock Cruz MD Work Phone: [facility] Comment on above: Refill Request Start: 12-13-2023 Patient Msg Brock Cruz MD Work Phone: [facility] Comment on above: Mammogram Order Start: 10-31-2023 ambulatory Sanchez Sebastian [facility] Start: 10-31-2023 Patient encounter procedure Sanchezjigna Sebastian [facility] Comment on above: Appointment (Called and rescheduled wellness) Start: 08-23-2023 End: 08-23-2023 ambulatory BROCK CRANE Facility:[id number] Start: 08-23-2023 End: 08-23-2023 Patient encounter status Brock Crane MD Work Phone: [facility] Work Phone: Start: 08-23-2023 End: 08-23-2023 Periodic preventive med est patient 40-64yrs Brock Crane MD Work Phone: [facility] Comment on above: Wellness examination (Primary Dx); Screening for depression; Allergic rhinitis due to pollen, unspecified seasonality; Anxiety disorder, unspecified type; Screening for deficiency anemia; Lipid screening; Encounter for screening mammogram for malignant neoplasm of breast; Hives Start: 08-23-2023 End: 08-23-2023 Unlisted evaluation and management service Brock Crane MD Work Phone: [facility] Comment on above: OPENED IN ERROR (Kasandra aleta Dx) Start: 08-23-2023 End: 08-23-2023 ambulatory BROCK CRANE Facility:[id number] Start: 08-23-2023 Encounter for genera l adult medical examination without abnormal findings BROCK CRANE [facility] Start: 03-02-2023 Refill Brock Cruz MD Work Phone: [facility] Comment on above: Refill Request Start: 01-17-2023 Refill Brock Cruz MD Work Phone: [facility] Comment on above: Refill Request Start: 12-08-2022 Telephone encounter Brock Crane MD Work Phone: [facility] Comment on above: Erroneous encounter- disregard Start: 11-22-2022 Refill Brock Cruz MD Work Phone: [facility] Comment on above: Refill Request Start: 08-21-2022 Patient encounter procedure [facility] Provider [facility] Department Start: 06-06-2022 End: 06-06-2022 Office outpatient visit 15 minutes Brock Crane MD Work Phone: [facility] Comment on above: Primary osteoarthrit is of both knees (Primary Dx) Start: 05-25-2022 Telephone encounter Brock Crane MD Work Phone: [facility] Comment on above: Opened In Error Start: 05-25-2022 End: 05-25-2022 Office outpatient visit 15 minutes Brock Crane MD Work Phone: [facility] Comment on above: Anxiety (Primary Dx) Start: 12-10-2021 Refill Brock Cruz MD Work Phone: [facility] Comment on above: Refill Request Start: 11-22-2021 Refill Brock Cruz MD Work Phone: [facility] Comment on above: Refill Request Plan of Treatment Date Care Activity Detail Author Start: 07-28-2025 Screening for malign ant neoplasm of cervix [facility] Start: 01-21-2024 Influenza vaccination [facility] Start: 01-01-2024 Behavioral Health Screening Behavioral Health Screening [facility] Start: 01-20-2023 Covid-19 Vaccine ( season) Covid-19 Vaccine ( season) [facility] Start: 01-20-2023 [facility]: 2022 Mammography [facility] Start: 2022 Screening for malign ant neoplasm of breast Mammogram Screening [facility] Start: 05-22-2022 DEPRESSION ASSESSMENT DEPRESSION ASS ESSMENT [facility] Start: 01-20-2022 Influenza vaccination INFLUENZA (#1) [facility] Start: 11-27-2018 HPV TESTING HPV TESTING [facility] Start: 11-27-2018 Screening for malign ant neoplasm of cervix HPV Testing [facility] Start: 11-26-2018 PAP TESTING PAP TESTING [facility] Start: 2001 Hepatitis B Vaccine (1 of 3 - 19+ 3-dose series) Hepatitis B Vaccine (1 of 3 - 19+ 3-dose series) [facility] Start: 2001 Urine microalbumin profile [facility] Start: 2000 Depression Screening Depression Scre ening [facility] Start: 2000 HEPATITIS C SCREENING HEPATITIS C [facility] Start: 2000 Hepatitis C screening Hepatitis C [facility] Start: 2000 HIV SCREENING HIV SCREENING [facility] Start: 2000 HIV screening HIV Screening [facility] Start: 1994 Adult depression screening assessment DEPRESSION SCREENING [facility] Start: 06-22-1983 COVID-19 VACCINE (#1) COVID-19 VACCI NE (#1) [facility] Start: 1982 HEPATITIS B (1 of 3 - 3-dose series) HEPATITIS B (1 of 3 - 3-dose series) [facility] Start: 1982 Hepatitis B Vaccine (1 of 3 - 3-dose series) Hepatitis B Vaccine (1 of 3 - 3-dose series) [facility] Arthrocentesis aspir&/inj major jt/bursa w/o us DRAIN/INJECT LARGE JOINT/BURSA Procedures Routine Primary osteoarthritis of both knees Ordered: 06/06/2022 [facility] Work Phone: Comment on above: Ordered: 06/06/2022 End: 09-21-2024 MG Breast Screening OXANA SCREENING Radiology Routine Encounter for screening mammogram for malignant neoplasm of breast 1 Occurrences starting 08/23/2023 until 09/21/2024 [facility] Work Phone: Comment on above: 1 Occurrences starti ng 08/23/2023 until 09/21/2024 [facility] Payers Date Payer Category Payer Unknown [id number] 2023 Unknown [id number] 2022 Private Health Insurance [facility] CHOICE PLUS [id number] 2022-Present [phone] [address] [place] [address] HMO [id number] 2018 Unknown MMO MMO [employer] [id number] 2018-Present [phone] [address] [place] [address] PPO [id number] Social History Date Type Detail Facility Start: 09-03-2012 End: 08-23-2023 Tobacco smoking status NHIS Never smoked tobacco [facility] Start: 09-03-2012 End: 08-23-2023 Tobacco use and exposure Smokeless tobacco non-user [facility] Start: 11-26-2013 End: 08-23-2023 Alcohol intake Current drinker of alcohol (finding) [facility] Start: 1980 Sex Assigned At Not on file C [facility] Start: 06-06-2022 End: 08-23-2023 History of Social function [facility] Start: 06-06-2022 End: 08-23-2023 Tobacco use panel [facility] National Score (1-10 0), lower number is lower risk 64 [facility] Has the [employer], [employer], or water company threatened to shut off services in your home in past 12Mo No [facility] Are you now , , , , never or living with a partner? [facility] How often to you hav e a drink containing alcohol? Monthly or less [facility] How many standard drinks containing alcohol do you have on a typical day? 1 or 2 [facility] How often do you hav e 6 or more drinks on 1 occasion? Never [facility] Do you feel stress - tense, restless, nervous, or anxious, or unable to sleep at night because your mind is troubled all the time - these days [OSQ] Not at all [facility] (I/We) worried [employer] [facility] (my/our) food would run out before (I/we) got money to buy more. Never true [facility] Start: 08-23-2023 Alcohol Comment rarely [facility] NEGATED: Highlighted rowStart: MÓNICAF History of tobacco use Passive smoker [facility] Clinical Notes 11-23-2021 to 10-31-2023 Sanchez Sebastian - 10/31/2023 7:53 AM Brock Licea MD - 08/24/2023 10:56 AM Agnes Lemos LPN - 08/23/2023 8:00 AM Brock Licea MD - 08/23/2023 8:35 AM EDT Note Date & Type Note Facility 10-31-2023 Note HNO ID: [id number] Author: ?, ?, ? Service: ? Author Type: ? Type: Progress Notes Filed: 10/31/2023 07:54 Note Text: Chart reviewed Annual Visit scheduled?: No Outreach needed: No Sanchez Sebastian October 31, 2023 7:54 AM [facility] 10-31-2023 History of Presen t illness Narrative Chart reviewed Annual Visit scheduled?: No Outreach needed: No Sanchez Sebastian October 31, 2023 7:54 AM documented in this encounter [facility] 10-31-2023 Note Patient Outreach (MR JUAREZ) RICARDO GRAVES ([id number]) 1980 F Date Time Provider Department 10/31/23 SANCHEZ SEBASTIAN [facility] During your visit today, we recorded the following information about you: Sanchez Sebastian 10/31/2023 7:54 AM Signed Chart reviewed Annual Visit scheduled?: No Outreach needed: No Sanchez Sebastian October 31, 2023 7:54 AM Allergies As of Date: 10/31/2023 Noted Allergy Reaction GRASS POLLEN 12/06/2016 16 - Unknown HAY FEVER AND ALLERGY RELIEF 12/06/2016 16 - Unknown LACTOSE 12/06/2016 16 - Unknown CATS 09/03/2012 7 - Swelling 9 - Itching DOGS 09/03/2012 7 - Swelling 9 - Itching HOUSE DUST 07/28/2022 16 - Unknown MOLD 07/28/2022 16 - Unknown SEASONAL ALLERGIES 09/03/2012 16 - Unknown TREE AND SHRUB POLLEN 07/28/2022 16 - Unknown Date Reviewed: 08/23/2023 Reviewed by: Agnes Mcgovern LPN - Fully Assessed Reason for Visit: Appointment [186] Cmt: Called and rescheduled wellness Prescriptions as of 10/31/2023 - spironolactone (ALDACTONE) 100 mg tablet Take 1 tablet by mouth once daily. - montelukast (SINGULAIR) 10 mg tablet Take 1 tablet by mouth once daily. - fluticasone (FLONASE) 50 mcg/actuation nasal spray USE 1 SPRAY IN EACH NOSTRIL DAILY NEEDED - meloxicam (MOBIC) 15 mg tablet 15 MG ORALLY DAILY FOR PAIN DO NOT TAKE IN CONJUNCTION WITH OTHER NSAIDS. TYLENOL IS OKAY. - albuterol HFA (PROVENTIL HFA, VENTOLIN HFA) 90 mcg/actuation inhaler Inhale 200,000 Puffs as instructed four times daily as needed. INHALE 2 PUFFS DIRECTED FOUR TIMES A DAY NEEDED Problem List As Of Date 10/31/2023 Noted Resolved Allergic rhinitis [J30.9] 12/06/2016 Anxiety [F41.9] 12/06/2016 Acne [L70.9] 12/06/2016 Anxiety disorder, unspecified [F41.9] 05/25/2022 Encounter Status:Closed by SANCHEZ SEBASTIAN on 10/31/23 [facility] 08-24-2023 Note HNO ID: [id number] Author: BROCK CRANE MD Service: ? Author Type: Physician Type: Progress Notes Filed: 08/24/2023 10:56 Note Text: This encounter was opened in error. [facility] 08-24-2023 History of Presen t illness Narrative This encounter was opened in error. Patient in the office today for an annual Wellness exam. No refills needed today? Health Maintenance Due: Hepatitis C Screening HIV Screening DTaP,Tdap,Td Vaccine(1 - Tdap) Hepatitis B Vaccine(1 of 3 - 19+ 3-dose series) HPV Testing Mammogram Screening Covid-19 Vaccine( season) Depression Assessment documented in this encounter [facility] 08-23-2023 Note HNO ID: [id number] Author: BROCK CRANE MD Service: ? Author Type: Physician Type: Progress Notes Filed: 08/24/2023 10:56 Note Text: Subjective Ricardo Graves is a 42 year old female. Ricardo presents today for her annual wellness visit. Additionally she follows up for her anxiety, allergies,. She also complains today of hives. She is unsure of the cause. Review of Systems Constitutional: Negative. HENT: Negative. Eyes: Negative. Respiratory: Negative. Cardiovascular: Negative. Gastrointestinal: Negative. Endocrine: Negative. Genitourinary: Negative. Musculoskeletal: Negative. Skin: Negative. Allergic/Immunologic: Negative. Neurological: Negative. Hematological: Negative. Psychiatric/Behavioral: Negative. PAST SURGICAL HISTORY Procedure Laterality Date EXTRACTION, ERUPTED TOOTH OR EXPOSED ROOT (ELEVATION AND/OR FORCEPS REMOVAL) 2006 PAST MEDICAL HISTORY Diagnosis Date Acne 12/06/2016 Acne 12/06/2016 Anxiety 12/06/2016 Anxiety disorder, unspecified 05/25/2022 Bicornuate uterus FAMILY HISTORY Problem Relation Age of Onset Diabetes Maternal Grandmother Diabetes Paternal Grandmother Hypertension Maternal Grandmother Heart Maternal Grandmother Arthritis Maternal Grandmother COPD Maternal Grandmother Cancer Paternal Grandfather prostate other (blood disorder [Other]) Other C protien deficiency Social History Tobacco Use Smoking status: Never Passive exposure: Never Smokeless tobacco: Never Vaping Use Vaping Use: Never used Substance Use Topics Alcohol use: Yes Comment: rarely Drug use: No ALLERGIES Allergen Reactions Grass Pollen Unknown Hay Fever And Aller* Unknown Lactose Unknown Cats Swelling, Itching Dogs Swelling, Itching House Dust Unknown Mold Unknown Seasonal Allergies Unknown Tree And Shrub Poll* Unknown MEDICATIONS: fluticasone (FLONASE) 50 mcg/actuation nasal sprayUSE 1 SPRAY IN EACH NOSTRIL DAILY NEEDEDDisp: 48 gRfl: 5 meloxicam (MOBIC) 15 mg MG ORALLY DAILY FOR PAIN DO NOT TAKE IN CONJUNCTION WITH OTHER NSAIDS. TYLENOL IS OKAY.Disp: 30 tabletRfl: 5 albuterol HFA (PROVENTIL HFA, VENTOLIN HFA) 90 mcg/actuation inhalerInhale 200,000 Puffs as instructed four times daily as needed. INHALE 2 PUFFS DIRECTED FOUR TIMES A DAY NEEDEDDisp: 1 EachRfl: 3 spironolactone (ALDACTONE) 100 mg tabletTake 1 tablet by mouth once daily.Disp: 90 tabletRfl: 3 montelukast (SINGULAIR) 10 mg tabletTake 1 tablet by mouth once daily.Disp: 90 tabletRfl: 3 Allergies, past surgical history, family history and past medical history were reviewed per this encounter. Medications were reviewed and verified. Objective BP 116/78 (BP Site: Left Arm, BP Position: Sitting, BP Cuff Size: Large Adult) Pulse 76 Temp (!) 35.6 ?C (96 ?F) (Temporal) Resp 15 Ht 160 cm (5' 3 ) Wt 74.4 kg (164 lb 2 oz) LMP 11/18/2013 SpO2 96% BMI 29.07 kg/m? Physical Exam Vitals reviewed. Constitutional: Appearance: Normal appearance. HENT: Head: Normocephalic and atraumatic. Nose: Nose normal. Eyes: Extraocular Movements: Extraocular movements intact. Pupils: Pupils are equal, round, and reactive to light. Cardiovascular: Rate and Rhythm: Normal rate and regular rhythm. Pulmonary: Effort: Pulmonary effort is normal. Breath sounds: Normal breath sounds. Abdominal: General: Bowel sounds are normal. Palpations: Abdomen is soft. Musculoskeletal: General: Normal range of motion. Cervical back: Normal range of motion and neck supple. Skin: General: Skin is warm and dry. Capillary Refill: Capillary refill takes less than 2 seconds. Findings: Rash present. Neurological: General: No focal deficit present. Mental Status: She is alert and oriented to person, place, and time. Mental status is at baseline. Psychiatric: Mood and Affect: Mood normal. Behavior: Behavior normal. Assessment and Plan Encounter Diagnosis ICD-10-CM 1. Wellness examination Z00.00 COMP METABOLIC PANEL 2. Screening for depression Z13.31 DEPRESSION SCREENING/ASSESSMENT 3. Allergic rhinitis due to pollen, unspecified seasonality J30.1 4. Anxiety disorder, unspecified type F41.9 5. Screening for deficiency anemia Z13.0 CBC + DIFF 6. Lipid screening Z13.220 LIPID PANEL BASIC 7. Encounter for screening mammogram for malignant neoplasm of breast Z12.31 OXANA SCREENING 8. Hives L50.9 triamcinolone acetonide 60 mg injection (KeNALog 40) All open preventative health maintenance topics discussed with patient in detail. This includes risks and benefits regarding vaccines, cancer screening, healthy life style, and diet. Treat hives with Kenalog 60 mg IM. Continue present medications. Check labs as above. Monitor blood pressure regularly. Exercise as tolerated. Maintain good diet. Follow-up in 6 months. Brock Crane MD [facility] 08-23-2023 History of Presen t illness Narrative Subjective Ricardo Graves is a 42 year old female. Ricardo presents today for her annual wellness visit. Additionally she follows up for her anxiety, allergies,. She also complains today of hives. She is unsure of the cause. Review of Systems Constitutional: Negative. HENT: Negative. Eyes: Negative. Respiratory: Negative. Cardiovascular: Negative. Gastrointestinal: Negative. Endocrine: Negative. Genitourinary: Negative. Musculoskeletal: Negative. Skin: Negative. Allergic/Immunologic: Negative. Neurological: Negative. Hematological: Negative. Psychiatric/Behavioral: Negative. PAST SURGICAL HISTORY Procedure Laterality Date EXTRACTION, ERUPTED TOOTH OR EXPOSED ROOT (ELEVATION AND/OR FORCEPS REMOVAL) 2006 PAST MEDICAL HISTORY Diagnosis Date Acne 12/06/2016 Acne 12/06/2016 Anxiety 12/06/2016 Anxiety disorder, unspecified 05/25/2022 Bicornuate uterus FAMILY HISTORY Problem Relation Age of Onset Diabetes Maternal Grandmother Diabetes Paternal Grandmother Hypertension Maternal Grandmother Heart Maternal Grandmother Arthritis Maternal Grandmother COPD Maternal Grandmother Cancer Paternal Grandfather prostate other (blood disorder [Other]) Other C protien deficiency Social History Tobacco Use Smoking status: Never Passive exposure: Never Smokeless tobacco: Never Vaping Use Vaping Use: Never used Substance Use Topics Alcohol use: Yes Comment: rarely Drug use: No ALLERGIES Allergen Reactions Grass Pollen Unknown Hay Fever And Aller* Unknown Lactose Unknown Cats Swelling, Itching Dogs Swelling, Itching House Dust Unknown Mold Unknown Seasonal Allergies Unknown Tree And Shrub Poll* Unknown MEDICATIONS: fluticasone (FLONASE) 50 mcg/actuation nasal spray^USE 1 SPRAY IN EACH NOSTRIL DAILY NEEDED^Disp: 48 g^Rfl: 5 meloxicam (MOBIC) 15 mg tablet^15 MG ORALLY DAILY FOR PAIN DO NOT TAKE IN CONJUNCTION WITH OTHER NSAIDS. TYLENOL IS OKAY.^Disp: 30 tablet^Rfl: 5 albuterol HFA (PROVENTIL HFA, VENTOLIN HFA) 90 mcg/actuation inhaler^Inhale 200,000 Puffs as instructed four times daily as needed. INHALE 2 PUFFS DIRECTED FOUR TIMES A DAY NEEDED^Disp: 1 Each^Rfl: 3 spironolactone (ALDACTONE) 100 mg tablet^Take 1 tablet by mouth once daily.^Disp: 90 tablet^Rfl: 3 montelukast (SINGULAIR) 10 mg tablet^Take 1 tablet by mouth once daily.^Disp: 90 tablet^Rfl: 3 Allergies, past surgical history, family history and past medical history were reviewed per this encounter. Medications were reviewed and verified. Objective BP 116/78 (BP Site: Left Arm, BP Position: Sitting, BP Cuff Size: Large Adult) Pulse 76 Temp (!) 35.6 C (96 F) (Temporal) Resp 15 Ht 160 cm (5' 3 ) Wt 74.4 kg (164 lb 2 oz) LMP 11/18/2013 SpO2 96% BMI 29.07 kg/m Physical Exam Vitals reviewed. Constitutional: Appearance: Normal appearance. HENT: Head: Normocephalic and atraumatic. Nose: Nose normal. Eyes: Extraocular Movements: Extraocular movements intact. Pupils: Pupils are equal, round, and reactive to light. Cardiovascular: Rate and Rhythm: Normal rate and regular rhythm. Pulmonary: Effort: Pulmonary effort is normal. Breath sounds: Normal breath sounds. Abdominal: General: Bowel sounds are normal. Palpations: Abdomen is soft. Musculoskeletal: General: Normal range of motion. Cervical back: Normal range of motion and neck supple. Skin: General: Skin is warm and dry. Capillary Refill: Capillary refill takes less than 2 seconds. Findings: Rash present. Neurological: General: No focal deficit present. Mental Status: She is alert and oriented to person, place, and time. Mental status is at baseline. Psychiatric: Mood and Affect: Mood normal. Behavior: Behavior normal. Assessment and Plan Encounter Diagnosis ICD-10-CM 1. Wellness examination Z00.00 COMP METABOLIC PANEL 2. Screening for depression Z13.31 DEPRESSION SCREENING/ASSESSMENT 3. Allergic rhinitis due to pollen, unspecified seasonality J30.1 4. Anxiety disorder, unspecified type F41.9 5. Screening for deficiency anemia Z13.0 CBC + DIFF 6. Lipid screening Z13.220 LIPID PANEL BASIC 7. Encounter for screening mammogram for malignant neoplasm of breast Z12.31 OXANA SCREENING 8. Hives L50.9 triamcinolone acetonide 60 mg injection (KeNALog 40) All open preventative health maintenance topics discussed with patient in detail. This includes risks and benefits regarding vaccines, cancer screening, healthy life style, and diet. Treat hives with Kenalog 60 mg IM. Continue present medications. Check labs as above. Monitor blood pressure regularly. Exercise as tolerated. Maintain good diet. Follow-up in 6 months. Brock Crane MD Patient in the office today for an annual Wellness exam. Refills entered Health Maintenance Due: Hepatitis C Screening Never done HIV Screening Never done DTaP,Tdap,Td Vaccine(1 - Tdap) Never done Hepatitis B Vaccine(1 of 3 - 19+ 3-dose series) Never done HPV Testing due on 11/27/2018 Mammogram Screening Never done Covid-19 Vaccine( season) Never done Depression Assessment Never done Agnes Mcgovern LPN August 23, 2023 8:12 AM Kenalog injection administered without difficulty, and documented in chart. Patient tolerated injection well, and denied pain or discomfort at injection site. Agnes Mcgovern LPN August 23, 2023 9:25 AM documented in this encounter [facility] 08-23-2023 Note HNO ID: [id number] Author: AGNES MCGOVERN LPN Service: ? Author Type: LICENSED NURSE Type: Progress Notes Filed: 08/24/2023 10:56 Note Text: Patient in the office today for an annual Wellness exam. No refills needed today? Health Maintenance Due: Hepatitis C Screening HIV Screening DTaP,Tdap,Td Vaccine(1 - Tdap) Hepatitis B Vaccine(1 of 3 - 19+ 3-dose series) HPV Testing Mammogram Screening Covid-19 Vaccine() Depression Assessment [facility] 08-23-2023 Note HNO ID: [id number] Author: AGNES MCGOVERN LPN Service: ? Author Type: LICENSED NURSE Type: Progress Notes Filed: 08/24/2023 10:56 Note Text: Patient in the office today for an annual Wellness exam. Refills entered Health Maintenance Due: Hepatitis C Screening Never done HIV Screening Never done DTaP,Tdap,Td Vaccine(1 - Tdap) Never done Hepatitis B Vaccine(1 of 3 - 19+ 3-dose series) Never done HPV Testing due on 11/27/2018 Mammogram Screening Never done Covid-19 Vaccine() Never done Depression Assessment Never done Agnes Mcgovern LPN August 23, 2023 8:12 AM Kenalog injection administered without difficulty, and documented in chart. Patient tolerated injection well, and denied pain or discomfort at injection site. Agnes Mcgovern LPN August 23, 2023 9:25 AM [facility] 01-17-2023 Miscellaneous Notes Formattin g of this note is different from the original. Rx mail pharmacy faxed requesting the following refill. Requested Prescriptions Pending Prescriptions Disp Refills fluticasone (FLONASE) 50 mcg/actuation nasal spray [Pharmacy Med Name: FLUTICASONE PROP NASAL SPRAY 16GM 50MCG] 48 g 5 Sig: USE 1 SPRAY IN EACH NOSTRIL DAILY NEEDED Patient last appointment: 06/06/2022 Patient Phone numbers: [phone] (home) [phone] (work) Request is for script(s) to be escript to mail order [facility]. Raquel Lopez LPN documented in this encounter [facility] 06-06-2022 History of Presen t illness Narrative This note was created using Jukedeckriter. Subjective Ricardo Graves is a 41 year old female. Presents with bilateral osteoarthritis of the knee with pain. She would like bilateral knee injections. Review of Systems All other systems reviewed and are negative. Objective BP 112/76 (BP Site: Left Arm, BP Position: Sitting, BP Cuff Size: Regular Adult) Pulse 80 Temp 36.4 C (97.5 F) (Temporal) Resp 16 Ht 160 cm (5' 3 ) Wt 61.5 kg (135 lb 8 oz) LMP 11/18/2013 SpO2 99% BMI 24.00 kg/m Physical Exam Vitals reviewed. Constitutional: Appearance: Normal appearance. HENT: Head: Normocephalic and atraumatic. Nose: Nose normal. Eyes: Extraocular Movements: Extraocular movements intact. Pupils: Pupils are equal, round, and reactive to light. Cardiovascular: Rate and Rhythm: Normal rate and regular rhythm. Pulmonary: Effort: Pulmonary effort is normal. Breath sounds: Normal breath sounds. Abdominal: General: Bowel sounds are normal. Palpations: Abdomen is soft. Musculoskeletal: General: Swelling, tenderness and signs of injury present. Normal range of motion. Cervical back: Normal range of motion and neck supple. Skin: General: Skin is warm and dry. Capillary Refill: Capillary refill takes less than 2 seconds. Neurological: General: No focal deficit present. Mental Status: She is alert and oriented to person, place, and time. Mental status is at baseline. Psychiatric: Mood and Affect: Mood normal. Behavior: Behavior normal. Assessment and Plan Ricardo was seen today for follow up. Diagnoses and all orders for this visit: Primary osteoarthritis of both knees - DRAIN/INJECT LARGE JOINT/BURSA Both knees joint line were cleansed with Betadine. Anterior medial approach was utilized to inject 4 cc of lidocaine and 2 cc of betamethasone into the knee joint. The patient tolerated this well. Both knees were injected. Patient had immediate relief of knee pain. Patient here today for office visit for bilateral knee injections.Patient denies any other concerns at this time. Patient states no refills needed today. Agnes Mcgovern LPN June 06, 2022 8:19 AM documented in this encounter [facility] 05-25-2022 History of Presen t illness Narrative This note was created using Kimble. Subjective Ricardo Graves is a 41 year old female. Ricardo presents today for follow-up for her anxiety. She reports her symptoms are stable on her current regimen. She has no new complaints today. Review of Systems Constitutional: Negative. HENT: Negative. Eyes: Negative. Respiratory: Negative. Cardiovascular: Negative. Gastrointestinal: Negative. Endocrine: Negative. Genitourinary: Negative. Musculoskeletal: Negative. Skin: Negative. Allergic/Immunologic: Negative. Neurological: Negative. Hematological: Negative. Psychiatric/Behavioral: Negative. Objective BP 122/82 (BP Site: Left Arm, BP Position: Sitting, BP Cuff Size: Large Adult) Pulse 76 Temp 36.4 C (97.6 F) (Temporal) Resp 18 Ht 152.4 cm (5') Wt 63.6 kg (140 lb 3.2 oz) LMP 11/18/2013 SpO2 94% BMI 27.38 kg/m Physical Exam Vitals reviewed. Constitutional: Appearance: Normal appearance. HENT: Head: Normocephalic and atraumatic. Nose: Nose normal. Eyes: Extraocular Movements: Extraocular movements intact. Pupils: Pupils are equal, round, and reactive to light. Cardiovascular: Rate and Rhythm: Normal rate and regular rhythm. Pulmonary: Effort: Pulmonary effort is normal. Breath sounds: Normal breath sounds. Abdominal: General: Bowel sounds are normal. Palpations: Abdomen is soft. Musculoskeletal: General: Normal range of motion. Cervical back: Normal range of motion and neck supple. Skin: General: Skin is warm and dry. Capillary Refill: Capillary refill takes less than 2 seconds. Neurological: General: No focal deficit present. Mental Status: She is alert and oriented to person, place, and time. Mental status is at baseline. Psychiatric: Mood and Affect: Mood normal. Behavior: Behavior normal. Assessment and Plan Ricardo was seen today for 6 month exam. Diagnoses and all orders for this visit: Anxiety - LORazepam (ATIVAN) 0.5 mg; Take 1 tablet by mouth every 8 hours as needed for up to 90 days. Other orders - spironolactone (ALDACTONE) 50 mg tablet; Take 1 tablet by mouth daily at bedtime. - albuterol HFA (PROVENTIL HFA, VENTOLIN HFA) 90 mcg/actuation inhaler; Inhale 200,000 Puffs as instructed four times daily as needed. INHALE 2 PUFFS DIRECTED FOUR TIMES A DAY NEEDED - montelukast (SINGULAIR) 10 mg tablet; Take 1 tablet by mouth once daily. Patient is in office today for 6 month exam. Patient stated her current Lorazepam dosage is working. Agnes Waterman LPN May 25, 2022 11:02 AM documented in this encounter [facility] 11-23-2021 Miscellaneous Notes Pharmacy faxed requesting the following refill. Pending Prescriptions Disp Refills FLUTICASONE PROPIONATE 50 MCG/ACTUATION NASAL SPRAY,SUSPENSION 48 g 5 Sig: USE 1 SPRAY IN EACH NOSTRIL DAILY NEEDED NELI: Yes Patient last appointment: Visit date not found Patient Phone numbers: [phone] (home) [phone] (work) Request is for script(s) to be escript to pharmacy. Raquel Lopez LPN documented in this encounter [facility] Evaluation note Diagnosis Anxiety- Primary Anxiety state, unspecified [facility] Diagnosis Primary osteoarthritis of both knees- Primary Primary localized osteoarthrosis, lower leg [facility] Diagnosis Wellness examination- Primary Screening for depression Allergic rhinitis due to pollen, unspecified seasonality Anxiety disorder, unspecified type Screening for deficiency anemia Screening for other and unspecified deficiency anemia Lipid screening Screening for lipoid disorders Encounter for screening mammogram for malignant neoplasm of breast Other screening mammogram Hives Urticaria, unspecified [facility] Diagnosis OPENED IN ERROR- Primary To allow closing an encounter opened in error (used in SmartSet) [facility] Diagnosis Primary osteoarthritis of both knees Primary localized osteoarthrosis, lower leg Chronic pain of both knees [facility] Diagnostic Procedure Only (Routine) - Denied Specialty Diagnoses / Procedures Referred By Jose Ramon t Referred To Contact [facility] Diagnoses Encounter for screening mammogram for malignant neoplasm of breast Procedures OXANA SCREENING SCREENING MAMMOGRAPHY BI 2-VIEW BREAST INC CAD Brock Crane MD [address] [place] [address] [facility] [address] [place] [id number] Referral ID Status Reason Start Date Expiration Date V isits Requested Visits Authorized [id number] Denied Auto-Generated Referral Clearance Not Met -Financial Clearance Bypassed 08/23/2023 09/21/2024 1 0 [facility] Summary Purpose Family History No Family History Records FoundNo Family History Records FoundNo Family History Records Found Advance Directives No Advanced Directives Records FoundNo Advanced Directives Records FoundNo Advanced Directives Records Found Additional Source Comments INFORMATION SOURCE (unrecogn ized section and content) DATE CREATED AUTHOR 09/15/2021 [facility] Elin Antonio DATE CREATED AUTHOR AUTHOR'S ORGANIZ ATION 08/10/2023 [facility] DATE CREATED AUTHOR AUTHOR'S ORGANIZ ATION 11/01/2023 [facility] Ce nter Source Comments (unrecognize d section and content) In the event this informatio n is protected by the Federal Confidentiality of Alcohol and Drug Abuse Patient Records regulations: The Federal rules restrict any use of the information to criminally investigate or prosecute any alcohol or drug abuse patient.[facility] the event this information is protected by the Federal Confidentiality of Alcohol and Drug Abuse Patient Records regulations: The Federal rules restrict any use of the information to criminally investigate or prosecute any alcohol or drug abuse patient.[facility] the event this information is protected by the Federal Confidentiality of Alcohol and Drug Abuse Patient Records regulations: The Federal rules restrict any use of the information to criminally investigate or prosecute any alcohol or drug abuse patient.[facility] the event this information is protected by the Federal Confidentiality of Alcohol and Drug Abuse Patient Records regulations: The Federal rules restrict any use of the information to criminally investigate or prosecute any alcohol or drug abuse patient.[facility] the event this information is protected by the Federal Confidentiality of Alcohol and Drug Abuse Patient Records regulations: The Federal rules restrict any use of the information to criminally investigate or prosecute any alcohol or drug abuse patient.[facility] the event this information is protected by the Federal Confidentiality of Alcohol and Drug Abuse Patient Records regulations: The Federal rules restrict any use of the information to criminally investigate or prosecute any alcohol or drug abuse patient.[facility] the event this information is protected by the Federal Confidentiality of Alcohol and Drug Abuse Patient Records regulations: The Federal rules restrict any use of the information to criminally investigate or prosecute any alcohol or drug abuse patient.[facility] the event this information is protected by the Federal Confidentiality of Alcohol and Drug Abuse Patient Records regulations: The Federal rules restrict any use of the information to criminally investigate or prosecute any alcohol or drug abuse patient.[facility] the event this information is protected by the Federal Confidentiality of Alcohol and Drug Abuse Patient Records regulations: The Federal rules restrict any use of the information to criminally investigate or prosecute any alcohol or drug abuse patient.[facility] the event this information is protected by the Federal Confidentiality of Alcohol and Drug Abuse Patient Records regulations: The Federal rules restrict any use of the information to criminally investigate or prosecute any alcohol or drug abuse patient.[facility] the event this information is protected by the Federal Confidentiality of Alcohol and Drug Abuse Patient Records regulations: The Federal rules restrict any use of the information to criminally investigate or prosecute any alcohol or drug abuse patient.[facility] the event this information is protected by the Federal Confidentiality of Alcohol and Drug Abuse Patient Records regulations: The Federal rules restrict any use of the information to criminally investigate or prosecute any alcohol or drug abuse patient.[facility] the event this information is protected by the Federal Confidentiality of Alcohol and Drug Abuse Patient Records regulations: The Federal rules restrict any use of the information to criminally investigate or prosecute any alcohol or drug abuse patient.[facility] the event this information is protected by the Federal Confidentiality of Alcohol and Drug Abuse Patient Records regulations: The Federal rules restrict any use of the information to criminally investigate or prosecute any alcohol or drug abuse patient.[facility] the event this information is protected by the Federal Confidentiality of Alcohol and Drug Abuse Patient Records regulations: The Federal rules restrict any use of the information to criminally investigate or prosecute any alcohol or drug abuse patient.[facility] Reason for Visit (unrecogniz ed section and content) Reason Comments Refill Request Reason Onset Date Comments Refill Request 12/10/2021 Reason Comments Opened In Error Reason Comments 6 Month Exam Reason Comments Follow Up Reason Comments Erroneous encounter-disregard Reason Comments Wellness Specialty Diagnoses / Procedures Referred By Jose Ramon t Referred To Contact [facility] Diagnoses Encounter for screening mammogram for malignant neoplasm of breast Procedures OXANA SCREENING SCREENING MAMMOGRAPHY BI 2-VIEW BREAST INC CAD Brock Crane MD [address] [place] [address] [facility] [address] [place] [address] Referral ID Status Reason Start Date Expiration Date V isits Requested Visits Authorized [id number] Denied Auto-Generated Referral Clearance Not Met -Financial Clearance Bypassed 08/23/2023 09/21/2024 1 0 Reason Onset Date Comments Opened In Error 08/24/2023 Specialty Diagnoses / Procedures Referred By Jose Ramon zepeda Referred To Contact Family Medicine / FAMILY MEDICINE Diagnoses Well adult exam wellness Procedures WELLNESS EXAMS EST 40-64 YRS EST WELL VISIT Self Brock Crane MD [address] [place] [address] Referral ID Status Reason Start Date Expiration Date Visits Requested Visits Authorized [id number] Denied Financial Clearance Required - OON Payor OON Notification Letter Clearance Not Met - Admin/Kick Press Setter/D irector Advise to Postpone/Resched ule or Not Proceed 08/23/2023 11/21/2023 1 0 Reason Onset Date Comments Appointment 10/31/2023 Called and [place] eduled wellness Care Teams (unrecognized sec tion and content) Coremaker Supervisor Relationship Specialty Start Date End Date Brock Crane MD PCP - General Family Practice 08/07/12 Coremaker Supervisor Relationship Specialty Start Date End Date Brock Crane MD PCP - General Family Practice 08/07/12 Coremaker Supervisor Relationship Specialty Start Date End Date Brock Crane MD PCP - General Family Medicine 08/07/12 Coremaker Supervisor Relationship Specialty Start Date End Date Brock Crane MD PCP - General Family Medicine 08/07/12 Coremaker Supervisor Relationship Specialty Start Date End Date Brock Crane MD PCP - General Family Medicine 08/07/12 Coremaker Supervisor Relationship Specialty Start Date End Date Brock Crane MD PCP - General Family Medicine 08/07/12 Coremaker Supervisor Relationship Specialty Start Date End Date Brock Crane MD PCP - General Family Medicine 08/07/12 Coremaker Supervisor Relationship Specialty Start Date End Date Brock Crane MD PCP - General Family Medicine 08/07/12 Coremaker Supervisor Relationship Specialty Start Date End Date Brock Crane MD PCP - General Family Medicine 08/07/12 Coremaker Supervisor Relationship Specialty Start Date End Date Brock Crane MD PCP - General Family Medicine 08/07/12 Coremaker Supervisor Relationship Specialty Start Date End Date Brock Crane MD PCP - General Family Medicine 08/07/12 Coremaker Supervisor Relationship Specialty Start Date End Date Brock Crane MD PCP - General Family Medicine 08/07/12 Coremaker Supervisor Relationship Specialty Start Date End Date Brock Crane MD PCP - General Family Medicine 08/07/12 Inactive Administered Medications - up to 3 most recent administrations Administered Medications (un recognized section and content) Medication Order MAR Action Action Date Dose Rate Site triamcinolone acetonide 60 mg injection (KeNALog 40) 60 mg, INTRAMUSCULAR, ONCE, 1 dose, On Mon08/23/23 at 0830 Given 08/23/2023 9:23 AM EDT 60 mg Buttocks, Right FOR RECORDS PERTAINING TO PATIENTS WHO ARE OR HAVE BEEN ENROLLED IN A CHEMICAL DEPENDENCY/SUBSTANCEABUSE PROGRAM, SOME INFORMATION MAY BE OMITTED. This clinical summary was aggregated from multiple sources. Caution should be exercised in using it in the provision of clinical care. This summary normalizes information from multiple sources, and as a consequence, information in this document may materially change the coding, format and clinical context of patient data. In addition, data may be omitted in some cases. CLINICAL DECISIONS SHOULD BE BASED ON THE PRIMARY CLINICAL RECORDS. [employer] [facility] provides no warranty or guarantee of the accuracy or completeness of information in this document.
--- NOTE | 2024-03-14 13:47 | EDS_ITS ---
HPI History of Present Illness Chief Complaint: Upper Extremity Injury Informant: patient Narrative Narrative: 43-year-old female was hit by her dog last night and fell to the ground. She states that her arm was numb afterwards but when she woke this morning has pain and swelling over the distal wrist. She notes some discomfort over the scapula on the right. No head or neck injury. [facility] Medical History Depression Home Medications ?Medication ?Instructions ?Recorded ?Last Taken ?Type montelukast 10 mg tablet 10 mg PO DAILY 07/28/22 Unknown History (Singulair) spironolactone 25 mg tablet 25 mg PO DAILY 07/28/22 Unknown History (Aldactone) albuterol sulfate 90 mcg/actuation inhalation 03/14/24 Unknown History aerosol inhaler Allergy/AdvReac Type Severity Reaction Status Date / Time grass pollen Allergy Other Verified 03/14/24 08:11 house dust Allergy Other Verified 03/14/24 08:11 lactose Allergy Other Verified 03/14/24 08:11 mold Allergy Other Verified 03/14/24 08:11 tree and shrub pollen Allergy Other Verified 03/14/24 08:11 Family History Grandmother Primary generalized (osteo)arthritis Rheumatoid arthritis CHF (congestive heart failure) COPD (chronic obstructive pulmonary disease) Hypertension DMII (diabetes mellitus, type 2) Surgical History Crosby teeth removed Social History Smoking Status: Former smoker alcohol intake: never what type of physical activity do you participate in: walking ROS ROS ED Constitutional Constitutional ED: Denies chills, fever(s) or weight loss Eyes Eyes: Denies change in vision or diplopia ENT ENT ED: Denies ear pain, rhinorrhea or sore throat Cardiovascular Cardiovascular: Denies chest pain, orthopnea, palpitations or racing heartbeat Respiratory/Chest Respiratory/Chest: Denies cough, dyspnea or orthopnea Gastrointestinal Gastrointestinal: Denies abdominal pain, diarrhea, nausea or vomiting Genitourinary Genitourinary ED: Denies dysuria, hematuria or urinary frequency Musculoskeletal Musculoskeletal: Reports other Details: See history of present illness ; Denies arthralgias or myalgias Integumentary Reports other Details: Abrasion to dorsum of fingers on the right particularly middle and ring ; Denies abscess or rash Neurologic Neurologic: Denies headache(s) or weakness Psychiatric Psychiatric: Denies anxiety, depression, suicidal ideation or suicidal thoughts Endocrine Endocrinology: Denies polydipsia, polyphagia or polyuria Allergic/Immunologic Allergic/Immunologic ED: Denies mouth swelling, tongue swelling or urticaria EXAM Physical Exam Const Vital Signs: 03/14/24 08:12 Temperature 96.3 F L Temperature Source Temporal Pulse Rate 88 Respiratory Rate 16 Blood Pressure 127/93 H Blood Pressure Mean 104 Pulse Ox 100 Oxygen Delivery Method Room Air Positive well nourished and well developed General Appearance ED: well developed and NAD HEENT Reports normocephalic, head/scalp atraumatic and moist mucous membranes Eyes PERRL and EOMs intact bilaterally Neck no lymphadenopathy, supple and no JVD Resp normal respiratory effort and clear to auscultation bilaterally Cardio regular rate, regular rhythm and no murmurs GI normal to inspection, nondistended, normoactive bowel sounds and non-tender Palpation: soft Back/Spine no CVA tenderness and normal ROM Extremity Extremity Narrative: There is some mild swelling over the dorsum of the right wrist. Limited range of motion secondary to pain. There are superficial abrasions over the proximal phalanx region of the middle and ring finger. There is no elbow swelling full range of motion. There is mild tenderness over the scapula but no tenderness over the scapular spine. No obvious deformity. Neurovascular appears intact. General Extremety ED: Negative for edema General Extremity: Negative for edema Neuro oriented x3 and CN's II-XII intact bilaterally Sensorium / Orientation: alert Motor Exam: strength 5/5 throughout Psych mental status grossly normal Mood & Affect: Negative for depressed or tearful Skin no rashes or lesions noted and no wounds MDM MDM MDM Narrative Medical decision making narrative: Differential diagnosis includes but not limited to fracture sprain ligamentous injury muscular injury neurovascular injury My independent interpretation of the plain films of the right wrist is no acute fracture. Radiology concurs. Patient be placed in a Velcro wrist splint. Would recommend follow-up 10 to 14 days if not improved RICEM therapy. History & Record Review Discussion w/independent historian: Patient Radiography Diagnostic Testing: Clinical Impression(s) from Imaging Studies Wrist X-Ray 03/14/24 08:53 IMPRESSION: Normal x-ray examination of the right wrist. Electronically Signed: Paxton Harvey MD at 9:11 EDT , Discharge Plan Triage Chief Complaint: Upper Extremity Injury ED Provider: Arturo Riojas Dx/Rx/DC Orders Clinical Impression: Sprain of wrist, Fall, Contusion of right shoulder Instructions: ED Wrist Sprain Prescriptions: No Action spironolactone [Aldactone] 25 mg tablet 25 mg PO DAILY montelukast [Singulair] 10 mg tablet 10 mg PO DAILY albuterol sulfate 90 mcg/actuation HFA aerosol inhaler INHALATION Primary Care Provider: Brock Oneill Referrals: Brock Oneill MD [Primary Care Provider] - 10-14 Days if not better Print Language: Romanian Disposition Disposition: Home, Self Care Discharge Date/Time: 03/14/24 09:46
== END 2024-03-14 09:46 | disposition home or self-care (01) ==
LOC: ED 09:27
PROVIDERS: Emergency Provider Emergency Medicine; PCP Family Medicine; Visit Provider Emergency Medicine
DX: S63.501A Unspecified sprain of right wrist, initial encounter (principal); S40.011A Contusion of right shoulder, initial encounter; S60.412A Abrasion of right middle finger, initial encounter; S60.414A Abrasion of right ring finger, initial encounter; W54.1XXA Struck by dog, initial encounter; Z87.891 Personal history of nicotine dependence
CPT/HCPCS: 73110; 99283

== ENCOUNTER → 2024-10-22 | Outpatient (CLI) | payer OTHER, SELFPAY ==
--- NOTE | 2024-10-22 09:26 | RAD_ITS ---
PROCEDURE: L/S SPINE MIN 4 VIEWS 10/22/2024 REASON FOR EXAM: LOW BACK PAIN, ASSESS VERTEBRAL ALIGNMENT/DISK SPACES TECHNIQUE: Standing AP view(s) of the thoracic and lumbar spine. COMPARISON: None. FINDINGS: No evidence acute fracture or dislocation. Vertebral body heights are maintained. Intervertebral disc spaces are maintained. No visualized pars defects. Grade 1 anterolisthesis of L4 on L5. RAD/L/S Spine Min 4 Views IMPRESSION: L4-5 spondylolisthesis. Reading Location: [place] [id number]
[2024-10-22 12:22] LABS: Absolute Lymphocyte Count 1.41 X10^3/uL (0.83-4.51); Absolute Neutrophil Count 5.7 X10^3/uL (2.0-7.7); Basophil# 0.07 X10^3/uL; Basophil% 0.9 % (0-1); Eosinophil# 0.29 X10^3/uL; Eosinophils% 3.6 % (0-5); Hematocrit 42.3 % (37-47); Hemoglobin 14.2 g/dL (12.0-15.0); Lymphocyte # 1.41 X10^3/ul (0.83-4.51); Lymphocyte % 17.7 % (19-41); Mean Corp Hgb Conc 33.6 g/dL (32-36); Mean Corpuscular Hgb 30.8 pg (27.0-32.0); Mean Corpuscular Volume 91.8 fL (81-99); Mean Platelet Vol. 11.1 fl (6.2-12.0); Monocyte# 0.42 X10^3/uL; Monocyte% 5.3 % (0-10); NRBC Flagged by Analyzer 0 % (0-5); Neutrophil # 5.74 X10^3/uL (2.7-7.7); Neutrophil % 72.1 % (47-70); Platelet Count 265 K/mm3 (150-450); RBC Distribution Width CV 12.6 % (11.6-14.6); RBC Distribution Width SD 42.5 fl (35.1-43.9); Red Blood Count 4.61 M/mm3 (4.2-5.4)
[2024-10-22 12:58] LABS: ALB/GLOB Ratio 1.7 RATIO (0.9-2.4); AST(SGOT) 19 U/L (<=31); Alanine Aminotransfer ALT/SGPT 19 U/L (<=34); Albumin, Serum 4.4 g/dL (3.5-5.0); Alkaline Phosphatase 66 U/L (35-104); Anion Gap 11 (5-15); BUN 14 mg/dL (4-19); BUN/Creat Ratio 17.6 RATIO (10-20); Calcium,Total 9.2 mg/dL (7.6-11.0); Carbon Dioxide 21.4 mmol/L (21.0-32.0); Chloride 106 mmol/L (98-108); Cholesterol 178 mg/dL (<=200); Creatinine, Serum 0.82 mg/dL (0.70-1.20); EST Glomerular Filtration Rate 92 (>60); Globulin 2.7 g/dL (2.2-4.2); Glucose 83 mg/dL (70-99); High Density Lipoprotein 56 mg/dL; Low Density Lipoprotein Calc. 108 mg/dL; Potassium 4.2 mmol/L (3.3-5.1); Protein, Total 7.1 g/dL (5.9-8.4); Sodium Level 138 mmol/L (133-145); Total Bilirubin 0.21 mg/dL (0.00-1.30); Triglycerides 70 mg/dL; Very Low Density Lipoprotein 14 mg/dL (5-40)
--- OUTSIDE RECORDS SUMMARY | 2024-10-22 13:34 | XMS RPT_ITS | CCD ---
Author Organization [facility] Care Team Providers Care Com Writer Name Role Phone Brock Crane MD Primary Care Provider Dr. Brock Crane Primary Care Provider Dr. Brock Crane Referring Provider NINI Stacy Attending Provider Dr. Saleem Bloom Attending Provider Brock Crane MD Primary Care Provider Brock Crane MD Primary Care Provider Brock Crane MD Primary Care Provider BROCK CRANE Attending Unavailab BROCK Lynch Primary Care Unavailab BROCK Lynch Referring Unavailab BROCK Lynch Primary Care Unavailab Cuba Sykes Attending Unavailable Brock Crane Primary Care Unavailable Brock Crane Referring Unavailable Brock Crane Primary Care Unavailable Saleem Bloom Attending Unavailable Arturo Riojas Attending Unavailable Brock Crane Primary Care Unavailable Brock Crane Primary Care Unavailable Brock Crane Referring Unavailable Cuba Daniels Attending Unavailable Allergies Allergy Classification Reported Allergen(s) Allergy Type Date of Onset Reaction(s) Facility (18 sources) Cat; Translations: [CATS] Allergy to substance 04-15-201 3 Swelling, Itching [facility] (18 sources) Dog; Translations: [DOGS] Allergy to substance 04-15-201 3 Swelling, Itching [facility] (18 sources) Seasonal allergy; Translations: [SEASONAL ALLERGIES] Allergy to substance 04-15-201 3 Other: See Comments, Unknown [facility] (18 sources) Grass pollen; Translations: [GRASS POLLEN] Drug Allergy 7 Other: See Comments, Unknown [facility] (17 sources) Lactose; Translations: [LACTOSE] Drug Allergy 7 Other: See Comments, Unknown [facility] (16 sources) Hay Fever And Allergy Relief; Translations: [HAY FEVER AND ALLERGY RELIEF] Drug Allergy 7 Other: See Comments, Unknown [facility] (9 sources) house dust allergenic extract; Translations: [HOUSE DUST] Drug Allergy 3 Unknown [facility] (9 sources) Mold Extract; Translations: [MOLD] Drug Allergy 3 Unknown [facility] (10 sources) Tree and shrub pollen; Translations: [TREE AND SHRUB POLLEN] Allergy to substance 3 Unknown [facility] (1 source) house dust allergenic extract Drug Allergy 4 [facility] (1 source) Lactose Drug Allergy 4 [facility] (1 source) Mold Extract Drug Allergy 4 [facility] Medications Current Medications Medication Drug Class(es) Dates Sig (Normalized) Sig (Original) [id number] 200 actuat albuterol 0.09 mg/actuat metered dose inhaler (17 sources) beta2-Adrenergic Agonist Start: 10-30-2021 End: 05-25-2022 [...] PUFFS DIRECTED FOUR TIMES A DAY NEEDED diphenhydrAMINE hydrochloride 25 mg oral capsule (1 source) Histamine-1 Receptor Antagonist Start: 07-28-2022 take 1 capsule by mouth at bedtime Diphenhydramine Hcl (Benadryl) 25 mg capsule Active 25 MG PO AT BEDTIME July 28, 2022 1:00am fluticasone propionate 0.05 mg/actuat metered dose nasal spray (19 sources) Corticosteroid Start: 07-28-2022 take 1 spray(s) nasal route once daily Fluticasone Propionate (Flonase Allergy Relief) 50 mcg/actuation spray,suspension Active 1 SPRAY INTRANASAL DAILY July 28, 2022 1:00am administer into each nostril Start: 11-23-2021 End: 01-17-2023 take 1 spray(s) nasal route once daily as needed fluticasone (FLONASE) 50 mcg/actuation nasal spray USE 1 SPRAY IN EACH NOSTRIL DAILY NEEDED 48 g 5 01/17/2023 Active Comment on above: USE 1 SPRAY IN EACH NOSTRIL DAILY NEEDED LORazepam 0.5 mg oral tablet (6 sources) Benzodiazepine Start: 11-01-19 End: 08-24-19 take 0.5 mg by mouth every eight [...] 90 days. meloxicam 15 mg oral tablet (12 sources) Nonsteroidal Anti-inflammatory Drug Start: 12-10-19 take 5 tablets by mouth once daily [...] NSAIDS. TYLENOL IS OKAY. 0 08/25/2022 Active Start: 07-28-2022 End: 08-22-2022 take 15 mg by mouth once daily Meloxicam Active 15 MG PO DAILY August 22, 2022 1:46pm Do not take in conjunction with other NSAIDs. Tylenol is okay. Comment on above: 15 MG ORALLY DAILY F OR PAIN DO NOT TAKE IN CONJUNCTION WITH OTHER NSAIDS. TYLENOL IS OKAY. montelukast 10 mg oral tablet (19 sources) Leukotriene Receptor Antagonist Start: take 1 tablet by mouth once daily montelukast (SINGULAIR) 10 mg tablet TAKE 1 TABLET BY MOUTH EVERY DAY 90 tablet 3 09/04/2024 Active Start: 10-02-2021 End: 09-04-2024 take 1 tablet by mouth once daily montelukast (SINGULAIR) 10 mg tablet Take 1 tablet by mouth once daily. 90 tablet 3 08/23/2023 09/04/2024 Discontinued Comment on above: Take 10 mg by mouth once daily. Take 1 tablet by elba th once daily. rifapentine 150 mg oral tablet (1 source) Rifamycin Antimycobacterial Start: 2022 take 1 tablet by mouth every week at mealtime Rifapentine (Priftin) 150 mg tablet Active 600 MG PO EVERY WEEK July 28, 2022 1:00am must administer with a meal/food spironolactone 100 mg oral tablet (20 sources) Aldosterone Antagonist Start: 2022 End: 2024 take 1 tablet by mouth once daily spironolactone (ALDACTONE) 100 mg tablet Take 1 tablet by mouth once daily. 90 tablet 3 08/23/2023 Active Start: 07-28-2022 take 1 tablet by elba th once daily Spironolactone (Aldactone) 25 mg tablet Active 25 MG PO DAILY July 28, 2022 1:00am Start: 03-07-2022 End: 12-08-2022 take 1 tablet [...] Drug Class(es) Dates Sig (Normalized) Sig (Original) diclofenac sodium 20 mg/ml topical solution (2 sources) Nonsteroidal Anti-inflammatory Drug Start: 08-22-2022 End: 08-24-2022 Diclofenac Sodium (Pennsaid) 20 mg/gram /actuation(2 %) solution in metered-dose pump Discontinued 2 PUMP TOPICAL TWICE A DAY August 22, 2022 12:00am August 24, 2022 8:52am apply to single affected knee Start: 07-28-2022 End: 08-22-2022 Diclofenac Sodium (Voltaren Arthritis Pain) 1 % gel Discontinued 2 GM TOPICAL ONCE July 28, 2022 1:00am August 22, 2022 1:45pm apply to single elbow, wrist or hand; for hand includes palm/fingers/back of hand escitalopram 10 mg oral tablet (2 sources) [...] Active Comment on above: Take by mouth. ibuprofen 200 mg oral tablet (1 source) Nonsteroidal Anti-inflammatory Drug Start: 07-29-19 End: 08-23-19 take 1 tablet by mouth every six hours Ibuprofen (Advil) 200 mg tablet Discontinued 200 MG PO EVERY 6 HOURS July 28, 2022 1:00am August 22, 2022 1:09pm 1 ml triamcinolone acetonide 40 mg/ml injection [...] Translations: [Anxiety disorder, unspecified] Onset: 12-06-2016 Chronic E Codes: Fall (1 source) Unspecified fall, initial encounter; Translations: [Unspecified fall, initial encounter] Onset: 03-18-2024 Episodic Osteoarthritis (2 sources) Primary gonarthrosis, bilateral; Translations: [...] 08-23-2023 08-23-2023 Episodic Other upper respiratory disease (14 sources) Allergic rhinitis; Translations: [Allergic rhinitis, unspecified] [...] Translations: [Screening for depression] Onset: 08-23-2023 Episodic Sprains and strains (1 source) Unspecified sprain of right wrist, initial encounter; Translations: [Unspecified sprain of right wrist, initial encounter] Onset: 04-05-2024 Episodic Superficial injury; contusion (1 source) Contusion of right shoulder, initial encounter; Translations: [Contusion of right shoulder, initial encounter] Onset: 03-18-2024 Episodic Unclassified (1 source) OPENED IN ERROR 08-24-2023 Past or Other Problems Problem Classification Problem Date Documented Da te Episodic/Chronic Other skin disorders (13 sources) Acne; Translations: [Acne, unspecified] Onset: 12-06-2016 06-06-2022 Episodic Results Test Name Value Interpretation Reference Range Facility Orthopedic Visit Reporton Orthopedic Visit Report [facility] [address] [place] [address] [address] [place] [address] OFFICE VISIT Date of Service: 04/15/24 MR#: [id number] Acct: [id number] Name: RICARDO GRAVES Rep #: [id number] : 1980 Provider: Dr. Cuba garces MD Age/Sex: 43/F Location: [facility] Status: Signed Intake Vital Signs 03/14/24 08:12 Height 5 ft 3 in Weight: 181 lb 3.52 oz BMI 32.1 BP 127/93 H Respiration 16 Pulse 88 Temp 96.3 F L Temp Source Temporal Pulse Oximetry (%) 100 Intake Visit Reasons: RIGHT WRIST Chief Complaint: right wrist Accompanied by: Self Is patient in pain?: No Allergies grass pollen Allergy (Verified 04/15/24 08:03) Other house dust Allergy (Verified 04/15/24 08:03) Other lactose Allergy (Verified 04/15/24 08:03) Other mold Allergy (Verified 04/15/24 08:03) Other tree and shrub pollen Allergy (Verified 04/15/24 08:03) Other Medications ???Medication ???Instructions ???Recorded ???Confirmed ???Type montelukast 10 mg tablet 10 mg PO DAILY 07/28/22 04/15/24 History (Singulair) spironolactone 25 mg tablet 25 mg PO DAILY 07/28/22 04/15/24 History (Aldactone) albuterol sulfate 90 mcg/actuation inhalation 03/14/24 04/15/24 History aerosol inhaler acetaminophen 325 mg capsule 650 mg PO ONCE 03/18/24 04/15/24 [facility] ([facility]ol) [facility] Medical History (Updated 03/22/24 @ 00:01 by Brice Mueller) Finger pain, right Right shoulder pain Depression Surgical History [place] teeth removed Family History Grandmother Primary generalized (osteo)arthritis Rheumatoid arthritis CHF (congestive heart failure) COPD (chronic obstructive pulmonary disease) Hypertension DMII (diabetes mellitus, type 2) Social History Smoking Status: Former smoker alcohol intake: never what type of physical activity do you participate in: walking HPI RIGHT WRIST Details: This documentation accurately reflects the service provided and the decisions made by me, Dr. Cuba Daniels MD 04/15/24 0757. Part of today???s visit was documented by [ ], acting as scribe. RICARDO GRAVES is a 43 year old F here today for 4 weeks follow-up right upper extremity strain and contusion of the shoulder. The patient is feeling a lot better no pain problems weakness or other concerns. The patient is interested to return back to [employer]. 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 Ortho Exam General General: Yes no acute distress Neurologic: Yes alert and Yes oriented x3 Psychologic: Yes reasonable and appropriate Right Wrist/Hand Skin/Wound: No CDI, No Swelling, No Ecchymosis and No nail intact Right Wrist: Yes ROM-Extension 0-60, ROM-Flexion 0-80, ROM-Pronation 0-80 and ROM-Supination 0-90 Left Wrist/Hand Skin/Wound: No Swelling and No Ecchymosis Right Elbow Skin/Wound: Yes CDI, No eccymosis, No erythema and No Swelling Right Shoulder Skin/Wound: Yes CDI, No ecchymosis, No erythema and No swelling Testing: Positive AROM-Forward Elevation 0-180 and PROM-External Rotation at side 0-60; Negative Hawkin's or Neer's SHOULDER: Strength in forward elevation and external rotation both 5/5 Coding Level of Care Code Off vis,est,level 3 Diagnoses Right shoulder pain M25.511 Assessment and Plan Assessment and Plan (1) Right shoulder pain: Status: Acute Plan: 43-year-old female 4 weeks following up from a strain to the right upper extremity. The patient is asymptomatic with full range of motion of all involved joints including the shoulder elbow and wrist no pain full strength therefore I wrote a note to be able to go back to [employer] all activities as tolerated follow-up as needed. The patient understands and agreement with the plan no further questions or concerns. 04/15/24 0815 Date Cuba Daniels MD Cosign Signature: Date (if applicable) CC: Normal [facility] Hand Min 3 Viewson 4 Hand Min 3 Views [facility] [address] [place] [address] Hand Min 3 Views MR#: [id number] Acct: [id number] Name: RICARDO GRAVES Rep #: [id number] : 1980 F 43 From: Paxton Harvey MD PCP: Dr. Brock Crane MD Status: DEP [facility] Study: Hand Min 3 Views Date of Exam: 03/18/24 Exam# [id number] Ordering Dr: Cuba Daniels MD [id number] STUDY: X-RAY - RIGHT HAND REASON FOR EXAM: Female, 43 years old. Fifth metacarpal pain. TECHNIQUE: 3 views of the right hand. COMPARISON: None. FINDINGS: Normal radiocarpal articulation. Normal distal radioulnar joint. Normal visualized carpal bones. Normal carpal articulations. Normal carpometacarpal articulation of the thumb. Normal second through fifth carpometacarpal joints. Normal metacarpi. There is no demonstrated acute fracture. Normal metacarpophalangeal joint of the thumb. Normal interphalangeal joint of the thumb. Normal proximal and distal phalanges of the thumb. Normal metacarpophalangeal joints of the second through fifth fingers. Normal proximal and distal interphalangeal joints of the second through fifth fingers. Normal phalanges of the second through fifth fingers. The soft tissue structures are unremarkable. RAD/Hand Min 3 Views IMPRESSION: Unremarkable x-ray examination of the right hand. Electronically Signed: Paxton Harvey MD at 15:15 EDT Reading Location ID and State: [facility] / [place] , Service support , CC: Dr. Brock Crane MD; Dr. Cuba Daniels MD Infrastructure Director: Signed Normal [facility] Orthopedic Visit Reporton Orthopedic Visit Report [facility] [address] [place] [address] [address] [place] [address] OFFICE VISIT Date of Service: 03/18/24 MR#: [id number] Acct: [id number] Name: RICARDO GRAVES Rep #: [id number] : 1980 Provider: Dr. Cuba garces MD Age/Sex: 43/F Location: [facility] Status: Signed Intake Vital Signs 03/14/24 08:12 Height 5 ft 3 in Intake Visit Reasons: RIGHT WRIST Chief Complaint: right wrist Is patient in pain?: Yes (right wrist ) Pain scale (1-10): 7 Allergies grass pollen Allergy (Verified 03/18/24 13:26) Other house dust Allergy (Verified 03/18/24 13:26) Other lactose Allergy (Verified 03/18/24 13:26) Other mold Allergy (Verified 03/18/24 13:26) Other tree and shrub pollen Allergy (Verified 03/18/24 13:26) Other Medications ???Medication ???Instructions ???Recorded ???Confirmed ???Type montelukast 10 mg tablet 10 mg PO DAILY 07/28/22 03/18/24 History (Singulair) spironolactone 25 mg tablet 25 mg PO DAILY 07/28/22 03/18/24 History (Aldactone) albuterol sulfate 90 mcg/actuation inhalation 03/14/24 03/18/24 History aerosol inhaler acetaminophen 325 mg capsule 650 mg PO ONCE 03/18/24 03/18/24 History (Tylenol) [facility] Medical History (Updated 03/18/24 @ 13:38 by Cuba Daniels MD) Finger pain, right Right shoulder pain Depression Surgical History [place] teeth removed Family History Grandmother Primary generalized (osteo)arthritis Rheumatoid arthritis CHF (congestive heart failure) COPD (chronic obstructive pulmonary disease) Hypertension DMII (diabetes mellitus, type 2) Social History Smoking Status: Former smoker alcohol intake: never what type of physical activity do you participate in: walking HPI RIGHT WRIST Details: This documentation accurately reflects the service provided and the decisions made by me, Dr. Cuba Daniels MD 03/18/24 1324. Part of today???s visit was documented by [ ], acting as scribe. RICARDO GRAVES is a 43 year old F here today for R shoulder pain, and 4/5th digits pain. was walking her pitbull. lateral side pain and pain in the fourth and fifth digits. 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 RHD. per ED notes 43-year-old female was hit by her dog last night and fell to the ground. She states that her arm was numb afterwards but when she woke this morning has pain and swelling over the d istal wrist. She notes some discomfort over the scapula on the right. No head or neck injury. Supplemental Info [facility] Imaging Services [address] [place], [place] [id number] Wrist min 3 Views MR#: [id number] Acct: [id number] Name: RICARDO GRAVES Rep #: [id number] : 1980 F 43 From: Paxton Harvey MD PCP: Dr. Brock Crane MD Status: PRE ER Study: Wrist min 3 Views Date of Exam: 03/14/24 Exam# [id number] Ordering Dr: Arturo Riojas DO [id number] STUDY: X-RAY - RIGHT WRIST REASON FOR EXAM: Female, 43 years old. INJURY, PAIN TECHNIQUE: 3 views of the right wrist were obtained. COMPARISON: None. FINDINGS: Normal visualized distal radius and ulna. Normal radiocarpal articulation. Normal distal radioulnar articulation. Normal carpal bones. Normal carpal articulations. Normal carpometacarpal articulation of the thumb. Normal second through fifth carpometacarpal articulations. Normal visualized metacarpal bones. The soft tissue structures are unremarkable. There is no demonstrated acute fracture. RAD/Wrist min 3 Views IMPRESSION: Normal x-ray examination of the right wrist. Electronically Signed: Paxton Harvey MD at 9:11 EDT , xr 4 view R shoulder -moderate AC joint arthrosis. Glenohumeral joint space well-maintained no acute abnormalities. xr 3 view R hand - nil acute Coding Level of Care Code Off vis,new,level 3 Diagnoses Contusion of right shoulder S40.011A Fall W19.XXXA Right shoulder pain M25.511 Finger pain, right M79.644 Assessment and Plan Assessment and Plan (1) Contusion of right shoulder: Status: Acute Plan: 43-year-old female with an acute strain and injury to the right upper extremity. They are all radiographs of the negative so far including the (more content not included)... Normal [facility] Shoulder min 2 Viewson 03-18 Shoulder min 2 Views [facility] [address] [place] [address] Shoulder min 2 Views MR#: [id number] Acct: [id number] Name: RICARDO GRAVES Rep #: [id number] : 1980 F 43 From: Paxton Harvey MD PCP: Dr. Brock Crane MD Status: DEP AMB Study: Shoulder min 2 Views Date of Exam: 03/18/24 Exam# [id number] Ordering Dr: Cuba Daniels MD [id number] STUDY: X-RAY - RIGHT SHOULDER REASON FOR EXAM: Female, 43 years old. Pain. TECHNIQUE: 4 views of the right shoulder. COMPARISON: None. FINDINGS: Normal glenohumeral articulation. There is mild acromioclavicular arthrosis. Normal acromion. Normal humeral head and visualized proximal humerus. The soft tissue structures are unremarkable. There is no demonstrated fracture. Normal visualized pulmonary apex. RAD/Shoulder min 2 Views IMPRESSION: Mild acromioclavicular arthrosis. No demonstrated fracture. Electronically Signed: Paxton Harvey MD at 14:25 EDT , CC: Dr. Brock Crane MD; Dr. Cuba Daniels MD Infrastructure Director: Signed Normal [facility] Emergency Department Summary on 03-14-2024 Emergency Department Summary [facility] Medical Records Department [address] [place] [id number] Emergency Department Summary 03/14/24 MR#: [id number] Acct: [id number] Name: RICARDO GRAVES Rep #: [id number] : 1980 43 From: Arturo Riojas DO PCP: Dr. Brock Crane MD Status:DEP ER Location: ED HPI History of Present Illness Chief Complaint: Upper Extremity Injury Informant: patient Narrative Narrative: 43-year-old female was hit by her dog last night and fell to the ground. She states that her arm was numb afterwards but when she woke this morning has pain and swelling over the distal wrist. She notes some discomfort over the scapula on the right. No head or neck injury. [facility] Medical History Depression Home Medications ???Medication ???Instructions ???Recorded ???Last Taken ???Type montelukast 10 mg tablet 10 mg PO DAILY 07/28/22 Unknown History (Singulair) spironolactone 25 mg tablet 25 mg PO DAILY 07/28/22 Unknown History (Aldactone) albuterol sulfate 90 mcg/actuation inhalation 03/14/24 Unknown History aerosol inhaler Allergy/AdvReac Type Severity Reaction Status Date / Time grass pollen Allergy Other Verified 03/14/24 08:11 house dust Allergy Other Verified 03/14/24 08:11 lactose Allergy Other Verified 03/14/24 08:11 mold Allergy Other Verified 03/14/24 08:11 tree and shrub pollen Allergy Other Verified 03/14/24 08:11 Family History Grandmother Primary generalized (osteo)arthritis Rheumatoid arthritis CHF (congestive heart failure) COPD (chronic obstructive pulmonary disease) Hypertension DMII (diabetes mellitus, type 2) Surgical History [place] teeth removed Social History Smoking Status: Former smoker alcohol intake: never what type of physical activity do you participate in: walking ROS ROS ED Constitutional Constitutional ED: Denies chills, fever(s) or weight loss Eyes Eyes: Denies change in vision or diplopia ENT ENT ED: Denies ear pain, rhinorrhea or sore throat Cardiovascular Cardiovascular: Denies chest pain, orthopnea, palpitations or racing heartbeat Respiratory/Chest Respiratory/Chest: Denies cough, dyspnea or orthopnea Gastrointestinal Gastrointestinal: Denies abdominal pain, diarrhea, nausea or vomiting Genitourinary Genitourinary ED: Denies dysuria, hematuria or urinary frequency Musculoskeletal Musculoskeletal: Reports other Details: See history of present illness ; Denies arthralgias or myalgias Integumentary Reports other Details: Abrasion to dorsum of fingers on the right particularly middle and ring ; Denies abscess or rash Neurologic Neurologic: Denies headache(s) or weakness Psychiatric Psychiatric: Denies anxiety, depression, suicidal ideation or suicidal thoughts Endocrine Endocrinology: Denies polydipsia, polyphagia or polyuria Allergic/Immunologic Allergic/Immunologic ED: Denies mouth swelling, tongue swelling or urticaria EXAM Physical Exam Const Vital Signs: 03/14/24 08:12 Temperature 96.3 F L Temperature Source Temporal Pulse Rate 88 Respiratory Rate 16 Blood Pressure 127/93 H Blood Pressure Mean 104 Pulse Ox 100 Oxygen Delivery Method Room Air Positive well nourished and well developed General Appearance ED: well developed and NAD HEENT Reports normocephalic, head/scalp atraumatic and moist mucous membranes Eyes PERRL and EOMs intact bilaterally Neck no lymphadenopathy, supple and no JVD Resp normal respiratory effort and clear to auscultation bilaterally Cardio regular rate, regular rhythm and no murmurs GI normal to inspection, nondistended, normoactive bowel sounds and non-tender Palpation: soft Back/Spine no CVA tenderness and normal ROM Extremity Extremity Narrative: There is some mild swelling over the dorsum of the right wrist. Limited range of motion secondary to pain. There are superficial abrasions over the proximal phalanx region of the middle and ring finger. There is no elbow swelling full range of motion. There is mild tenderness over the scapula but no tenderness over the scapular spine. No obvious deformity. Neurovascular appears intact. General Extremety ED: Negative for edema General Extremity: Negative for edema Neuro oriented x3 and CN's II-XII intact bilaterally Sensorium / Orientation: alert Motor Exam: strength 5/5 throughout Psych mental status grossly normal Mood Affect: Negative for depressed or tearful Skin no rashes or lesions noted and no wounds MDM MDM MDM Narrative Medical decision making narrative: Differential diagnosis includes but not (more content not included)... Normal [facility] Wrist min 3 Viewson 03-14-20 24 Wrist min 3 Views [facility] Imaging Services [address] [place], [place] [id number] Wrist min 3 Views MR#: [id number] Acct: [id number] Name: RICARDO GRAVES Rep #: [id number] : 1980 F 43 From: Paxton Harvey MD PCP: Dr. Brock Crane MD Status: PRE ER Study: Wrist min 3 Views Date of Exam: 03/14/24 Exam# [id number] Ordering Dr: Arturo Riojas DO [id number] STUDY: X-RAY - RIGHT WRIST REASON FOR EXAM: Female, 43 years old. INJURY, PAIN TECHNIQUE: 3 views of the right wrist were obtained. COMPARISON: None. FINDINGS: Normal visualized distal radius and ulna. Normal radiocarpal articulation. Normal distal radioulnar articulation. Normal carpal bones. Normal carpal articulations. Normal carpometacarpal articulation of the thumb. Normal second through fifth carpometacarpal articulations. Normal visualized metacarpal bones. The soft tissue structures are unremarkable. There is no demonstrated acute fracture. RAD/Wrist min 3 Views IMPRESSION: Normal x-ray examination of the right wrist. Electronically Signed: Paxton Harvey MD at 9:11 EDT , CC: Dr. Arturo Riojas DO; Dr. Brock Crane MD Infrastructure Director: Signed Normal [facility] CBC W Auto Differential pane l (Bld)on 08-23-2023 Basophils (Bld) [#/Vol] 0.05 10*3/uL <0.11 k/uL [facility] Basophils/100 WBC (Bld) 0.7 % [facility] Differential cell count method Nom (Bld) Auto [facility] Eosinophils (Bld) [#/Vol] 0.31 10*3/uL <0.46 k/uL [facility] Eosinophils/100 WBC (Bld) 4.4 % [facility] Erythrocyte distribution width (RBC) [Ratio] 12.5 % 11.5 - 15.0 % [facility] Hematocrit (Bld) [Volume fraction] 41.7 % 36.0 - 46.0 % [facility] Hemoglobin (Bld) [Mass/Vol] 13.8 g/dL 11.5 - 15.5 g/dL [facility] Immature granulocytes (Bld) [#/Vol] 0.03 10*3/uL <0.10 k/uL [facility] Immature granulocytes/100 WBC (Bld) 0.4 % [facility] Lymphocytes (Bld) [#/Vol] 1.26 10*3/uL 1.00 - 4.00 k/uL [facility] Lymphocytes/100 WBC (Bld) 17.8 % [facility] MCH (RBC) [Entitic mass] 31.2 pg 26.0 - 34.0 pg [facility] MCHC (RBC) [Mass/Vol] 33.1 g/dL 30.5 - 36.0 g/dL [facility] MCV (RBC) [Entitic vol] 94.1 fL 80.0 - 100.0 fL [facility] Monocytes (Bld) [#/Vol] 0.49 10*3/uL <0.87 k/uL [facility] Monocytes/100 WBC (Bld) 6.9 % [facility] Neutrophils (Bld) [#/Vol] 4.94 10*3/uL 1.45 - 7.50 k/uL [facility] Neutrophils/100 WBC (Bld) 69.8 % [facility] Platelet mean volume (Bld) [Entitic vol] 9.6 fL 9.0 - 12.7 fL [facility] Platelets (Bld) [#/Vol] 254 10*3/uL 150 - 400 k/uL [facility] RBC (Bld) [#/Vol] 4.43 10*6/uL 3.90 - 5.2 0 m/uL [facility] WBC (Bld) [#/Vol] 7.08 10*3/uL 3.70 - 11. 00 k/uL [facility] Basophils (Bld) [#/Vol] 0.05 10*3/uL Normal <0.11 [facility] Comment on above: Order Comment: Speci men Type: BLOOD SPECIMEN Ordering Facility: [facility] Address: [address] [place] [address] Performed By: #### 5 7021-8 #### [facility] [id number] [address] [place] Basophils/100 WBC (Bld) 0.7 % Normal [facility] Comment on above: Order Comment: Speci men Type: BLOOD SPECIMEN Ordering Facility: [facility] Address: [address] [place] [address] Performed By: #### 5 7021-8 #### [facility] CLIA [id number] [address] [place] [address] [facility] [place] Differential cell count method Nom (Bld) Auto Normal [facility] Comment on above: Order Comment: Speci men Type: BLOOD SPECIMEN Ordering Facility: [facility] Address: [address] [place] [address] Performed By: #### 5 7021-8 #### [facility] CLIA [id number] [address] [place] [address] [place] Eosinophils (Bld) [#/Vol] 0.31 10*3/uL Normal <0.46 [facility] Comment on above: Order Comment: Speci men Type: BLOOD SPECIMEN Ordering Facility: [facility] Address: [address] [place] [address] Performed By: #### 5 7021-8 #### [facility] CLIA [id number] [address] [place] [address] [place] Eosinophils/100 WBC (Bld) 4.4 % Normal [facility] Comment on above: Order Comment: Speci men Type: BLOOD SPECIMEN Ordering Facility: [facility] Address: [address] [place] [address] Performed By: #### 5 7021-8 #### [facility] CLIA [id number] [address] [place] [address] [place] Erythrocyte distribution width (RBC) [Ratio] 12.5 % Normal 11.5-15.0 [facility] Comment on above: Order Comment: Speci men Type: BLOOD SPECIMEN Ordering Facility: [facility] Address: [address] [place] [address] Performed By: #### 5 7021-8 #### [facility] CLIA [id number] [address] [place] [address] [place] Hematocrit (Bld) [Volume fraction] 41.7 % Normal 36.0-46.0 [facility] Comment on above: Order Comment: Speci men Type: BLOOD SPECIMEN Ordering Facility: [facility] Address: [address] [place] [address] Performed By: #### 5 7021-8 #### [facility] CLIA [id number] [address] [place], [place] [address] [place] Hemoglobin (Bld) [Mass/Vol] 13.8 g/dL Normal 11.5-15.5 [facility] Comment on above: Order Comment: Speci men Type: BLOOD SPECIMEN Ordering Facility: [facility] Address: [address] [place] [address] Performed By: #### 5 7021-8 #### [facility] CLIA [id number] [address] [place] [address] [place] Immature granulocytes (Bld) [#/Vol] 0.03 10*3/uL Normal <0.10 [facility] Comment on above: Order Comment: Speci men Type: BLOOD SPECIMEN Ordering Facility: [facility] Address: [address] [place] [address] Performed By: #### 5 7021-8 #### [facility] CLIA [id number] [address] [place], [place] [address] [place] Immature granulocytes/100 WBC (Bld) 0.4 % Normal [facility] Comment on above: Order Comment: Speci men Type: BLOOD SPECIMEN Ordering Facility: [facility] Address: [address] [place] [address] Performed By: #### 5 7021-8 #### [facility] CLIA [id number] [address] [place], [place] [address] [place] Lymphocytes (Bld) [#/Vol] 1.26 10*3/uL Normal 1.00-4.00 [facility] Comment on above: Order Comment: Speci men Type: BLOOD SPECIMEN Ordering Facility: [facility] Address: [address] [place] [address] Performed By: #### 5 7021-8 #### [facility] CLIA [id number] [address] Lymphocytes/100 WBC (Bld) 17.8 % Normal [facility] Comment on above: Order Comment: Speci men Type: BLOOD SPECIMEN Ordering Facility: [facility] Address: [address] [place] [address] Performed By: #### 5 7021-8 #### [facility] CLIA [id number] [address] [place] [address] [place] MCH (RBC) [Entitic mass] 31.2 pg Normal 26.0-34.0 [facility] Comment on above: Order Comment: Speci men Type: BLOOD SPECIMEN Ordering Facility: [facility] Address: [address] [place] [address] Performed By: #### 5 7021-8 #### [facility] CLIA [id number] [address] [place] [address] [place] MCHC (RBC) [Mass/Vol] 33.1 g/dL Normal 30.5-36.0 [facility] Comment on above: Order Comment: Speci men Type: BLOOD SPECIMEN Ordering Facility: [facility] Address: [address] [place] [address] Performed By: #### 5 7021-8 #### [facility] CLIA [id number] [address] [place] [address] [place] MCV (RBC) [Entitic vol] 94.1 fL Normal 80.0-100.0 [facility] Comment on above: Order Comment: Speci men Type: BLOOD SPECIMEN Ordering Facility: [facility] Address: [address] [place] [address] Performed By: #### 5 7021-8 #### [facility] CLIA [id number] [address] [place] [address] [place] Monocytes (Bld) [#/Vol] 0.49 10*3/uL Normal <0.87 [facility] Comment on above: Order Comment: Speci men Type: BLOOD SPECIMEN Ordering Facility: [facility] Address: [address] [place] [address] Performed By: #### 5 7021-8 #### [facility] CLIA [id number] [address] [place] [address] [place] Monocytes/100 WBC (Bld) 6.9 % Normal [facility] Comment on above: Order Comment: Speci men Type: BLOOD SPECIMEN Ordering Facility: [facility] Address: [address] [place] [address] Performed By: #### 5 7021-8 #### [facility] CLIA [id number] [address] [place] [address] [place] Neutrophils (Bld) [#/Vol] 4.94 10*3/uL Normal 1.45-7.50 [facility] Comment on above: Order Comment: Speci men Type: BLOOD SPECIMEN Ordering Facility: [facility] Address: [address] [place] [address] Performed By: #### 5 7021-8 #### [facility] CLIA [id number] [address] [place], [place] [address] [place] Neutrophils/100 WBC (Bld) 69.8 % Normal [facility] Comment on above: Order Comment: Speci men Type: BLOOD SPECIMEN Ordering Facility: [facility] Address: [address] [place] [address] Performed By: #### 5 7021-8 #### [facility] CLIA [id number] [address] [place] [address] [place] Platelet mean volume (Bld) [Entitic vol] 9.6 fL Normal 9.0-12.7 [facility] Comment on above: Order Comment: Speci men Type: BLOOD SPECIMEN Ordering Facility: [facility] Address: [address] [place] [address] Performed By: #### 5 7021-8 #### [facility] CLIA [id number] [address] Platelets (Bld) [#/Vol] 254 10*3/uL Normal 150-400 [facility] Comment on above: Order Comment: Speci men Type: BLOOD SPECIMEN Ordering Facility: [facility] Address: [address] [place] [address] Performed By: #### 5 7021-8 #### [facility] CLIA [id number] [address] RBC (Bld) [#/Vol] 4.43 10*6/uL Normal 3.90-5.20 [facility] Comment on above: Order Comment: Speci men Type: BLOOD SPECIMEN Ordering Facility: [facility] Address: [address] [place] [address] Performed By: #### 5 7021-8 #### [facility] CLIA [id number] [address] WBC (Bld) [#/Vol] 7.08 10*3/uL Normal 3.70-11.00 [facility] Comment on above: Order Comment: Speci men Type: BLOOD SPECIMEN Ordering Facility: [facility] Address: [address] [place] [address] Performed By: #### 5 7021-8 #### [facility] CLIA [id number] [address] [place] [address] [facility] CNOVon 08-23-2023 CNOV Office Visit ([facility] ) -------- RICARDO GRAVES ([id number]) 1980 F Date Time Provider Department 08/23/23 8:00 AM [place] During your visit today, we recorded the [...] 48 gRfl: 5 meloxicam (MOBIC) 15 mg [id number] MG ORALLY DAILY FOR PAIN DO NOT [...] (Temporal) Resp 15 Ht 160 cm (5' 3) Wt 74.4 kg (164 lb 2 oz) [...] normal. Assessment (more content not included)... Normal [facility] Comprehensive metabolic 2000 panelon 08-23-2023 Albumin [Mass/Vol] 3.8 g/dL 3.2 - 5.0 g/dL [facility] ALP [Catalytic activity/Vol] 62 U/L 45 - 117 U/L [facility] ALT [Catalytic activity/Vol] 18 U/L 13 - 61 U/L [facility] Anion gap [Moles/Vol] 3 mmol/L Low 5 - 16 mmol/L [facility] AST [Catalytic activity/Vol] 15 U/L 8 - 34 U/L [facility] Bilirubin [Mass/Vol] 0.4 mg/dL 0.2 - 1.0 mg/dL [facility] Calcium [Mass/Vol] 9.6 mg/dL 8.5 - 10. 5 mg/dL [facility] Chloride [Moles/Vol] 109 mmol/L High 98 - 107 mmol/L [facility] CO2 [Moles/Vol] 27 mmol/L 21 - 32 mmol/L [facility] Creatinine [Mass/Vol] 0.85 mg/dL 0.51 - 0.95 mg/dL [facility] Estimated Glomerular Filtration Rate 89 mL/min/1.73m >=60 mL/min/1.73m [facility] Glucose [Mass/Vol] 83 mg/dL 70 - 100 mg/dL [facility] Potassium [Moles/Vol] 4.6 mmol/L 3.5 - 5.1 mmol/L [facility] Protein [Mass/Vol] 6.8 g/dL 6.0 - 8.5 g/dL [facility] Sodium [Moles/Vol] 139 mmol/L 136 - 145 mmol/L [facility] Urea nitrogen [Mass/Vol] 21 mg/dL 7 - 26 mg/dL [facility] Albumin [Mass/Vol] 3.8 g/dL Normal 3.2-5.0 [facility] Comment on above: Order Comment: Speci men Type: BLOOD SPECIMEN Ordering Facility[facility] Address: [address] [place] [address] Performed By: #### 2 4331-1 #### [facility] CLIA [id number] [address] [place] [address] [facility] CLIA [id number] [address] [place], [place] [address] [place] [address] [place] #### 42423-5 #### [facility] CLIA [id number] [address] [place] [address] [place] ALP [Catalytic activity/Vol] 62 U/L Normal 45-117 [facility] Comment on above: Order Comment: Speci men Type: BLOOD SPECIMEN Ordering Facility[facility] Address: [address] [place] [address] Performed By: #### 2 4331-1 #### [facility] CLIA [id number] [address] [place], [place] [address] [facility] CLIA [id number] [address] [place], [place] [address] [place] [address] [place] #### 07146-1 #### [facility] CLIA [id number] [address] [place], [place] [address] [place] ALT [Catalytic activity/Vol] 18 U/L Normal 13-61 [facility] Comment on above: Order Comment: Speci men Type: BLOOD SPECIMEN Ordering Facility: [facility] Address: [address] [place] [address] Result Comment: Resu lts may be falsely depressed after the administration of Sulfasalazine and/or Sulfapyridine. Performed By: #### 2 4331-1 #### [facility] CLIA [id number] [address] [place] [address] [place] [facility] CLIA [id number] [address] [place] [address] [place] #### 58938-5 #### [facility] CLIA [id number] [address] [place], [place] [address] [place] Anion gap [Moles/Vol] 3 mmol/L Low 5-16 [facility] Comment on above: Order Comment: Speci men Type: BLOOD SPECIMEN Order[facility] Address: [address] [place] [address] Performed By: #### 2 4331-1 #### [facility] CLIA [id number] [address] [place], [place] [address] CLIA [id number] [address] [place] [address] [place] #### 87262-1 #### [facility] CLIA [id number] [address] [place] [address] [place] AST [Catalytic activity/Vol] 15 U/L Normal 8- [facility] Comment on above: Order Comment: Speci men Type: BLOOD SPECIMEN Order[facility]: [facility] Address: [address] [place] [address] Result Comment: Resu lts may be falsely depressed after the administration of Sulfasalazine and/or Sulfapyridine. Performed By: #### 2 4331-1 #### [facility] CLIA [id number] [address] [place] [address] [place] OF [facility] CLIA [id number] [address] [place] #### 19836-0 #### [facility] CLIA [id number] [address] [place], [place] [address] [place] Bilirubin [Mass/Vol] 0.4 mg/dL Normal 0.2-1.0 [facility] Comment on above: Order Comment: Speci men Type: BLOOD SPECIMEN Order[facility] Address: [address] [place] [address] Performed By: #### 2 4331-1 #### [facility] CLIA [id number] [address] [place] [address] [place] [facility] CLIA [id number] [address] [place] [address] [place] #### 68446-6 #### [facility] CLIA [id number] [address] [place] [address] [place] Calcium [Mass/Vol] 9.6 mg/dL Normal 8.5-10.5 [facility] Comment on above: Order Comment: Speci men Type: BLOOD SPECIMEN Order[facility] Facility[facility] Address: [address] [place], [place] [address] Performed By: #### 2 4331-1 #### [facility] CLIA [id number] [address] [place], [place] [address] [place] OF [facility] CLIA [id number] [address] [place] [address] [place] #### 99994-8 #### [facility] CLIA [id number] [address] [place], [place] [address] [place] Chloride [Moles/Vol] 109 mmol/L High 98-107 [facility] Comment on above: Order Comment: Speci men Type: BLOOD SPECIMEN Ordering Facility[facility] Address: [address] [place], [place] [address] Performed By: #### 2 4331-1 #### [facility] CLIA [id number] [address] [place] [address] [place] [facility] CLIA [id number] [address] [place] [address] [place] #### 04178-4 #### [facility] CLIA [id number] [address] [place], [place] [address] [place] CO2 [Moles/Vol] 27 mmol/L Normal 21-32 [facility] Comment on above: Order Comment: Speci men Type: BLOOD SPECIMEN Order[facility] Facility[facility] Address: [address] [place] [address] Performed By: #### 2 4331-1 #### [facility] CLIA [id number] [address] [place], [place] [address] CLIA [id number] [address] #### 09851-7 #### [facility] CLIA [id number] [address] [place] [address] Creatinine [Mass/Vol] 0.85 mg/dL Normal 0.51-0.95 [facility] Comment on above: Order Comment: Speci men Type: BLOOD SPECIMEN Order[facility] Facility[facility] Address: [address] [place] [address] Result Comment: Cyndi ents receiving either N-Acetylcysteine (NAC) or Metamizole prior to venipuncture, may have falsely depressed results. Performed By: #### 2 4331-1 #### [facility] CLIA [id number] [address] [place], [place] [address]N LAB CLIA [id number] [address] [place] [address] #### 64958-6 #### [facility] CLIA [id number] [address] [place] [address] Creatinine and Glomerular filtration rate.predicted panel (S/P/Bld) 89 mL/min/1.73m??? Normal >=60 [facility] Comment on above: Order Comment: Speci men Type: BLOOD SPECIMEN Order[facility] Facility[facility] Address: [address] [place] [address] Result Comment: Kathryn mated Glomerular Filtration Rate [...] GFR. Performed By: #### 2 4331-1 #### [facility] CLIA [id number] [address] [place] [address] [facility] CLIA [id number] [address] [place] [address] [place] #### 35254-6 #### [facility] CLIA [id number] [address] [place], [place] [address] [place] Glucose [Mass/Vol] 83 mg/dL Normal 70-100 [facility] Comment on above: Order Comment: José Antonio men Type: BLOOD SPECIMEN Order[facility] Address: [address] [place] [address] Result Comment: The [place] Diabetes Association (ADA) provides guidance for cutoff [...] Standards of Medical Care in Diabetes 2016, [place] [employer]. Diabetes Care. 2016.39(Suppl 1). Results may be falsely elevated after the administration of Sulfapyridine. Results may be falsely depressed after the administration of Sulfasalazine. Performed By: #### 2 4331-1 #### [facility] CLIA [id number] [address] [place], [place] [address] [place] [facility] CLIA [id number] [address] [place] [address] [place] #### 17445-8 #### [facility] CLIA [id number] [address] [place], [place] [address] [place] Potassium [Moles/Vol] 4.6 mmol/L Normal 3.5-5.1 [facility] Comment on above: Order Comment: Miriani men Type: BLOOD SPECIMEN Order[facility] Facility[facility] Address: [address] [place] [address] Performed By: #### 2 4331-1 #### [facility] CLIA [id number] [address] [place], [place] [address] [facility] CLIA [id number] [address] [place] [address] [place] #### 70644-4 #### [facility] CLIA [id number] [address] [place] [address] [place] Protein [Mass/Vol] 6.8 g/dL Normal 6.0-8.5 [facility] Comment on above: Order Comment: Speci men Type: BLOOD SPECIMEN Order[facility] Address: [address] [place] [address] Performed By: #### 2 4331-1 #### [facility] CLIA [id number] [address] [place], [place] [address] [place] [facility] CLIA [id number] [address] [place] [address] [place] #### 86013-4 #### [facility] CLIA [id number] [address] [place], [place] [address] [place] Sodium [Moles/Vol] 139 mmol/L Normal 136-145 [facility] Comment on above: Order Comment: Speci men Type: BLOOD SPECIMEN Order[facility] Address: [address] [place] [address] Performed By: #### 2 4331-1 #### [facility] CLIA [id number] [address] [place] [address] [place] [facility] CLIA [id number] [address] [place] [address] [place] #### 69765-0 #### [facility] CLIA [id number] [address] [place], [place] [address] [place] Urea nitrogen [Mass/Vol] 21 mg/dL Normal 7-26 [facility] Comment on above: Order Comment: José Antonio men Type: BLOOD SPECIMEN [facility] Address: [address] [place] [address] Performed By: #### 2 4331-1 #### [facility] CLIA [id number] [address] [place] [address] [facility] CLIA [id number] [address] [place], [place] [address] [place] [address] #### 93248-0 #### [facility] CLIA [id number] [address] [place] [address] [place] [facility] Lipid 1996 panelon 4 Cholesterol [Mass/Vol] 191 mg/dL 0 - 199 mg/dL [facility] Cholesterol in HDL [Mass/Vol] 74 mg/dL >40 mg/dL [facility] Cholesterol in LDL [Mass/Vol] 100 mg/dL 0 - 129 mg/dL [facility] Cholesterol in LDL/Cholesterol in HDL [Mass ratio] 1.35 {ratio} <2.54 [facility] Cholesterol in VLDL [Mass/Vol] 17 mg/dL <30 mg/dL [facility] Cholesterol non HDL [Mass/Vol] 117 mg/dL <130 mg/dL [facility] Cholesterol.total/ Cholesterol in HDL [Mass ratio] 2.58 {ratio} <5.10 [facility] Fasting Time 12 hrs [facility] Triglyceride [Mass/Vol] 83 mg/dL 30 - 149 mg/dL [facility] Cholesterol [Mass/Vol] 191 mg/dL Normal 0-199 [facility] Comment on above: Order Comment: José Antonio men Type: BLOOD SPECIMEN Order[facility] Address: [address] [place] [address] Result Comment: <200 mg/dL, Desirable 200-239 mg/dL, Borderline high >239 mg/dL, High Performed By: #### 2 4331-1 #### [facility] CLIA [id number] [address] [place] [address] [place] [facility] CLIA [id number] [address] [place] [address] [facility] #### [id number] #### [facility] CLIA [id number] [address] [place], [place] [address] [place] STATES [facility] Cholesterol in HDL [Mass/Vol] 74 mg/dL Normal >40 [facility] Comment on above: Order Comment: Speci men Type: BLOOD SPECIMEN Ordering Facility: [facility] Address: [address] [place] [address] Result Comment: 40-5 9 mg/dL, Acceptable >59 mg/dL, High: Negative risk factor for coronary heart disease <40 mg/dL, Low: Positive risk factor for coronary heart disease Performed By: #### 2 4331-1 #### [facility] CLIA [id number] [address] [place], [place] [address]N LAB CLIA [id number] [address] [place] [address] #### [id number] #### [facility] CLIA [id number] [address] [place] [address] STATES [facility] Cholesterol in LDL [Mass/Vol] 100 mg/dL Normal 0-129 [facility] Comment on above: Order Comment: Speci men Type: BLOOD SPECIMEN Ordering Facility: [facility] Address: [address] [place] [address] Result Comment: <100 mg/dL, Optimal 100-129 mg/dL, Near optimal/above optimal 130-159 mg/dL, Borderline high 160-189 mg/dL, High >189 mg/dL, Very high Secondary prevention optimal LDL Cholesterol levels are recommended to be < 70 mg/dL Performed By: #### 2 4331-1 #### [facility] CLIA [id number] [address] [place], [place] [address] [facility] CLIA [id number] [address] [place] [address] [place] #### 77665-2 #### [facility] CLIA [id number] [address] [place], [place] [address] [place] Cholesterol in LDL/Cholesterol in HDL [Mass ratio] 1.35 {ratio} Normal <2.54 [facility] Comment on above: Order Comment: Speci men Type: BLOOD SPECIMEN Ordering Facility: [facility] Address: [address] [place] [address] Result Comment: Tara shethkeith: 1. National Cholesterol Education Program ATP III Guideline At-A-Glance Quick Desk Reference: National Heart, Lung, and Blood [place]. National Institutes of Health. 2001: NIH Publication No. 01-3305. 2. An International Atherosclerosis Society position paper: global recommendations for the management of dyslipidemia: executive summary, Atherosclerosis. 2014: 232(2):410-413. Performed By: #### 2 4331-1 #### [facility] CLIA [id number] [address] [place] [address] STATES OF [facility] CLIA [id number] [facility] [place] [address] [place] #### 29826-0 #### [facility] CLIA [id number] [address] [place] [address] [place] Cholesterol in VLDL [Mass/Vol] 17 mg/dL Normal <30 [facility] Comment on above: Order Comment: Miriani men Type: BLOOD SPECIMEN Ordering Facility: [facility] Address: [address] [place] [address] Performed By: #### 2 4331-1 #### [facility] CLIA [id number] [address] [place] [address] [place] [facility] CLIA [id number] [address] [place] [address] [place] #### 87189-2 #### [facility] CLIA [id number] [address] [place], [place] [address] [place] Cholesterol non HDL [Mass/Vol] 117 mg/dL Normal <130 [facility] Comment on above: Order Comment: Speci men Type: BLOOD SPECIMEN Ordering Facility: [facility] Address: [address] [place] [address] Result Comment: <130 mg/dL, Optimal 130-159 mg/dL, Near optimal/above optimal 160-189 mg/dL, Borderline high 190-219 mg/dL, High >219 mg/dL, Very high Secondary prevention optimal non HDL Cholesterol levels are recommended to be <100 mg/dL Performed By: #### 2 4331-1 #### [facility] CLIA [id number] [address] [place], [place] [address] [facility] CLIA [id number] [address] [place] [address] #### 13533-6 #### [facility] CLIA [id number] [address] [place] [address] Cholesterol.total/ Cholesterol in HDL [Mass ratio] 2.58 {ratio} Normal <5.10 [facility] Comment on above: Order Comment: Speci men Type: BLOOD SPECIMEN Ordering Facility: [facility] Address: [address] [place] [address] Performed By: #### 2 4331-1 #### [facility] CLIA [id number] [address] [place], [place] [address] LAB CLIA [id number] [address] [place] [address] #### 43357-9 #### [facility] CLIA [id number] [address] [place] [address] FASTING TIME 12 hrs Normal [facility] Comment on above: Order Comment: Speci men Type: BLOOD SPECIMEN Ordering Facility: [facility] Address: [address] [place] [address] Performed By: #### 2 4331-1 #### [facility] CLIA [id number] [address] [place], [place] [address] [facility] CLIA [id number] [facility] [address] #### 34707-8 #### [facility] CLIA [id number] [address] [place] [address] [place] [facility] Triglyceride [Mass/Vol] 83 mg/dL Normal 30-149 [facility] Comment on above: Order Comment: Speci men Type: BLOOD SPECIMEN Ordering Facility: [facility] Address: [address] [place] [address] Result Comment: <150 mg/dL, Normal 150-199 mg/dL, Borderline high 200-499 mg/dL, High >499 mg/dL, Very high Patients receiving either N-Acetylcysteine (NAC) or Metamizole prior to venipuncture, may have falsely depressed results. Performed By: #### 2 4331-1 #### [facility] CLIA [id number] [address] [place] [address] OF [facility] CLIA [id number] [address] [place], [place] [address] [place] [address] #### 82173-9 #### [facility] CLIA [id number] [address] [place] [address] OF [place] CBC W/DIFFon 09-08-2021 BASO ABS 0.10 K/CU MM Normal 0-0.2 [facility] Comment on above: Performed By: #### L 200.36617 #### [facility] [address] [place] [address] Basophils/100 WBC (Bld) 0.5 % Normal 0-2 [facility] Comment on above: Performed By: #### L 200.49348 #### [facility] [address] [place] [address] EOS ABS 0.20 K/CU MM Normal 0-0.5 [facility] Comment on above: Performed By: #### L 200.30126 #### [facility] [address] [place] [address] Eosinophils/100 WBC (Bld) 1.6 % Normal 0-5 [facility] Comment on above: Performed By: #### L 200.16497 #### [facility] [address] [place] [address] Erythrocyte distribution width (RBC) [Ratio] 12.6 % Normal 11-14.5 [facility] Comment on above: Performed By: #### L 200.84466 #### [facility] [address] [place] [address] Hematocrit (Bld) [Volume fraction] 40.3 % Normal 35.0-47.0 [facility] Comment on above: Performed By: #### L 200.49407 #### [facility] [address] [place] [address] Hemoglobin (Bld) [Mass/Vol] 13.5 g/dL Normal 11.5-15.5 [facility] Comment on above: Performed By: #### L 200.81221 #### [facility] [address] [place] [address] IMMATR GRAN ABS 0.00 K/CU MM Normal Less than 2 [facility] Comment on above: Performed By: #### L 200.41591 #### [facility] [address] [place] [address] IMMATURE GRAN % 0.4 % Normal Less than 2 [facility] Comment on above: Performed By: #### L 200.25960 #### [facility] [address] [place] [address] LYMPH ABS 2.20 K/CU MM Normal 0.9-4.4 [facility] Comment on above: Performed By: #### L 200.06240 #### [facility] [address] [place] [address] Lymphocytes/100 WBC (Bld) 19.1 % Low 20-40 [facility] Comment on above: Performed By: #### L 200.32894 #### [facility] [address] [place] [address] MCHC (RBC) [Mass/Vol] 33.5 g/dL Normal 32.0-36.0 [facility] Comment on above: Performed By: #### L 200.73309 #### [facility] [address] [place] [address] MCV (RBC) [Entitic vol] 91.2 fL Normal 80.0-99.0 [facility] Comment on above: Performed By: #### L 200.16823 #### [facility] [address] [place] [address] MONO ABS 0.70 K/CU MM Normal 0.1-1.1 [facility] Comment on above: Performed By: #### L 200.10586 #### [facility] [address] [place] [address] Monocytes/100 WBC (Bld) 6.0 % Normal 2-10 [facility] Comment on above: Performed By: #### L 200.74404 #### [facility] [address] [place] [address] NEUTROPHIL ABS 8.30 K/CU MM Normal 2.0-8.3 [facility] Comment on above: Performed By: #### L 200.80659 #### [facility] [address] [place] [address] Neutrophils/100 WBC (Bld) 72.4 % Normal 45-75 [facility] Comment on above: Performed By: #### L 200.64205 #### [facility] [address] [place] [address] Nucleated RBC/100 WBC (Bld) [Ratio] 0.0 % Normal Less than 1 [facility] Comment on above: Performed By: #### L 200.51213 #### [facility] [address] [place] [address] Platelet mean volume (Bld) [Entitic vol] 10.3 fL Normal 9.4-12.4 [facility] Comment on above: Performed By: #### L 200.73376 #### [facility] [address] [place] [address] PLT 277 K/CU MM Normal 150-450 [facility] Comment on above: Performed By: #### L 200.44885 #### [facility] [address] [place] [address] RBC 4.42 M/CU MM Normal 3.90-5.30 [facility] Comment on above: Performed By: #### L 200.95992 #### [facility] [address] [place] [address] WBC 11.4 K/CUMM High 4.5-11.0 [facility] Comment on above: Performed By: #### L 200.95753 #### [facility] [address] [place] [address] CMPon 09-08-2021 Albumin [Mass/Vol] 3.8 g/dL Normal 3.2-5.0 [facility] Comment on above: Performed By: #### L 500.99625, L500.10083, L500.83436 #### [facility] [address] [place] [address] Albumin/Globulin [Mass ratio] 1.4 {ratio} Normal 0.8-2.0 [facility] Comment on above: Performed By: #### L 500.26033, L500.25527, L500.73159 #### [facility] [address] [place] [address] ALK PHOS 60 U/L Normal 45-117 [facility] Comment on above: Performed By: #### L 500.01696, L500.31169, L500.81771 #### [facility] [place] [address] ALT [Catalytic activity/Vol] 22 U/L Normal 13-61 [facility] Comment on above: Result Comment: RESU LTS MAY BE FALSELY DEPRESSED AFTER THE ADMINISTRATION OF SULFASALAZINE AND/OR SULFAPYRIDINE. Performed By: #### L 500.66975, L500.66307, L500.28705 #### [facility] [address] [place] [address] Anion gap [Moles/Vol] 7 mmol/L Normal 5-16 [facility] Comment on above: Performed By: #### L 500.60311, L500.35629, L500.18803 #### [facility] [address] [place] [address] AST [Catalytic activity/Vol] 20 U/L Normal 8-34 [facility] Comment on above: Result Comment: RESU LTS MAY BE FALSELY DEPRESSED AFTER THE ADMINISTRATION OF SULFASALAZINE AND/OR SULFAPYRIDINE. Performed By: #### L 500.92302, L500.67295, L500.52960 #### [facility] [address] [place] [address] BILI TOTAL 0.30 MG/DL Normal 0.2-1.0 [facility] Comment on above: Performed By: #### L 500.52660, L500.08598, L500.78607 #### [facility] [address] [place] [address] Calcium [Mass/Vol] 9.6 mg/dL Normal 8.5-10.5 [facility] Comment on above: Result Comment: NOTE NEW NORMAL RANGE DUE TO REAGENT CHANGE Performed By: #### L 500.13268, L500.20850, L500.25676 #### [facility] [address] [place], [place] [address] Chloride [Moles/Vol] 106 mmol/L Normal 98-107 [facility] Comment on above: Performed By: #### L 500.04206, L500.65424, L500.70973 #### [facility] [place] [address] CO2 [Moles/Vol] 28.0 mmol/L Normal 21-32 [facility] Comment on above: Performed By: #### L 500.27228, L500.28500, L500.21075 #### [facility] [address] [place] [address] Creatinine [Mass/Vol] 1.07 mg/dL High 0.510-0.950 [facility] Comment on above: Result Comment: Cyndi ents receiving either N-Acetylcysteine (NAC) or Metamizole prior to venipuncture, may have falsely depressed results. Performed By: #### L 500.86288, L500.69106, L500.67676 #### [facility] [address] [place] [address] Globulin (S) [Mass/Vol] 2.8 g/dL Normal 2.2-4.2 [facility] Comment on above: Performed By: #### L 500.21596, L500.67735, L500.62802 #### [facility] [address] [place] [address] Glucose [Mass/Vol] 75 mg/dL Normal 70-100 [facility] Comment on above: Result Comment: 70-1 00- Normal Fasting; 100-125 Impaired Fasting; greater than 126 on more than one result- Diabetes. ADA guidelines. Results may be falsely elevated after the administration of Sulfapyridine. Results may be falsely depressed after the administration of Sulfasalazine. Performed By: #### L 500.23526, L500.91982, L500.01064 #### [facility] [address] [place] [address] Potassium [Moles/Vol] 4.2 mmol/L Normal 3.5-5.1 [facility] Comment on above: Performed By: #### L 500.05995, L500.00371, L500.73262 #### [facility] [address] [place] [address] Protein [Mass/Vol] 6.6 g/dL Normal 6.0-8.5 [facility] Comment on above: Performed By: #### L 500.03349, L500.94459, L500.39047 #### [facility] [address] [place] [address] Sodium [Moles/Vol] 141 mmol/L Normal 136-145 [facility] Comment on above: Performed By: #### L 500.40023, L500.79272, L500.56182 #### [facility] [address] [place] [address] Urea nitrogen [Mass/Vol] 13 mg/dL Normal 7-26 [facility] Comment on above: Performed By: #### L 500.96181, L500.47899, L500.58792 #### [facility] [address] [place] [address] Urea nitrogen/Creatinin e [Mass ratio] 12 mg/mg Low 15-24 [facility] Comment on above: Performed By: #### L 500.38742, L500.16240, L500.32581 #### [facility] [address] [place] [address] GFR ESTon 09-08-2021 IF AMER Greater than [address] [facility] Comment on above: Performed By: #### L 500.66445, L500.33984, L500.73874 #### [facility] [address] [place] [address] IF non-AFR AMER 57 Normal [facility] Comment on above: Performed By: #### L 500.86443, L500.02374, L500.31450 #### [facility] [address] [place] [address] LIPIDon 09-08-2021 CHOL 157 MG/dL Normal 0-199 [facility] Comment on above: Performed By: #### L 500.42717, L500.03103, L500.16209 #### [facility] [address] [place] [address] Cholesterol in HDL [Mass/Vol] 75 mg/dL Normal GREATER THAN 40 [facility] Comment on above: Result Comment: Cyndi ents receiving Metamizole prior to venipuncture, may have falsely depressed results. Performed By: #### L 500.13830, L500.73011, L500.25111 #### [facility] [place] [address] Cholesterol in LDL [Mass/Vol] 66 mg/dL Normal [facility] Comment on above: Result Comment: ___C HOLESTEROL/HDL RATIO RISK___ CHD RISK = Total CHOL LDL HDL (CHOL/HDL) Recommended <200 <130 >40 <3.4 Borderline 200-239 130-159 3.4-4.99 High >240 >160 >5.0 Performed By: #### L 500.19344, L500.08547, L500.80647 #### [facility] [address] [place], [place] [address] Triglyceride [Mass/Vol] 80 mg/dL Normal 30-149 [facility] Comment on above: Result Comment: Cyndi ents receiving either N-Acetylcysteine (NAC) or Metamizole prior to venipuncture, may have falsely depressed results. Performed By: #### L 500.75345, L500.26992, L500.88674 #### [facility] [address] [place], [place] [address] Vital Signs Date Time Vital Sign Value Performing Clinician Facility 08-23-2023 08:07-0400 Body height 160 cm Brock Crane MD Work Phone: [facility] 08-23-2023 08:07-0400 Body temperature 96.01 [degF] Brock Crane MD Work Phone: [facility] 08-23-2023 08:07-0400 Body weight 74.45 kg Brock Crane MD Work Phone: [facility] 08-23-2023 08:07-0400 Diastolic blood pressure 78 mm[Hg] Brock Crane MD Work Phone: [facility] 08-23-2023 08:07-0400 Heart rate 76 /min Brock Crane MD Work Phone: [facility] 08-23-2023 08:07-0400 Respiratory rate 15 /min Brock Crane MD Work Phone: [facility] 08-23-2023 08:07-0400 SaO2% (BldA) [Mass fraction] 96 % Brock Crane MD Work Phone: [facility] 08-23-2023 08:07-0400 Systolic blood pressure 116 mm[Hg] Brock Crane MD Work Phone: [facility] 07-28-2022 15:21-0500 Body height 160.[address] Brock Crane Work Phone: [facility] 07-28-2022 15:21-0500 Body mass index (BMI) [Ratio] 23.9 kg/m2 Dr. Brock Crane Work Phone: [facility] 07-28-2022 15:21-0500 Body weight 61.[address] Brock Crane Work Phone: [facility] 06-06-2022 08:15-0500 Body height 160 cm Brock Crane MD Work Phone: [facility] 06-06-2022 08:15-0500 Body temperature 97.5 [degF] Brock Crane MD Work Phone: [facility] 06-06-2022 08:15-0500 Body weight 61.46 kg Brock Crane MD Work Phone: [facility] 06-06-2022 08:15-0500 Diastolic blood pressure 76 mm[Hg] Brock Crane MD Work Phone: [facility] 06-06-2022 08:15-0500 Heart rate 80 /min Brock Crane MD Work Phone: [facility] 06-06-2022 08:15-0500 Respiratory rate 16 /min Brock Crane MD Work Phone: [facility] 06-06-2022 08:15-0500 SaO2% (BldA) [Mass fraction] 99 % Brock Crane MD Work Phone: [facility] 06-06-2022 08:15-0500 Systolic blood pressure 112 mm[Hg] Brock Crane MD Work Phone: [facility] 05-25-2022 11:07-0500 Body height 152.4 cm Brock Crane MD Work Phone: [facility] 05-25-2022 11:07-0500 Body temperature 97.59 [degF] Brock Crane MD Work Phone: [facility] 05-25-2022 11:07-0500 Body weight 63.59 kg Brock Crane MD Work Phone: [facility] 05-25-2022 11:07-0500 Diastolic blood pressure 82 mm[Hg] Brock Crane MD Work Phone: [facility] 05-25-2022 11:07-0500 Heart rate 76 /min Brock Crane MD Work Phone: [facility] 05-25-2022 11:07-0500 Respiratory rate 18 /min Brock Crane MD Work Phone: [facility] 05-25-2022 11:07-0500 SaO2% (BldA) [Mass fraction] 94 % Brock Crane MD Work Phone: [facility] 05-25-2022 11:07-0500 Systolic blood pressure 122 mm[Hg] Brock Crane MD Work Phone: [facility] Encounters Encounter Date Encounter Type Care Provider Facility Start: 09-04-2024 End: 09-04-2024 Refill [facility] Comment on above: Refill Request Start: 04-15-2024 End: 04-15-2024 ambulatory Brock Crane Facility:[facility] Start: 03-18-2024 End: 03-18-2024 ambulatory Cuba Daniels Facility:[facility] Start: 03-14-2024 End: 03-15-2024 Patient encounter procedure [facility] Provider [facility] Department Start: 03-14-2024 End: 03-14-2024 Emergency department patient visit Arturo Redby Facility:[facility] Start: 12-30-2023 Refill Brock Cruz MD Work Phone: [facility] Comment on above: Refill Request Start: 12-13-2023 Patient Msg Brock Cruz MD Work Phone: [facility] Comment on above: Mammogram Order Start: 10-31-2023 ambulatory Sanchez Sebastian [facility] [employer] [facility] [employer] Start: 10-31-2023 Patient encounter procedure Sanchez Sebastian [facility] [employer] Comment on above: Appointment (Called and rescheduled wellness) Start: 08-23-2023 End: 08-23-2023 ambulatory BROCK CRANE Facility:[id number] Start: 08-23-2023 End: 08-23-2023 Patient encounter status Brock Crane MD Work Phone: [facility] Work Phone: Start: 08-23-2023 End: 08-23-2023 Periodic preventive med est patient 40-64yrs Brock Crane MD Work Phone: [facility] Comment on above: Wellness examination (Primary Dx); Screening for depression; Allergic rhinitis due to pollen, unspecified seasonality; Anxiety disorder, unspecified type; Screening for deficiency anemia; Lipid screening; Encounter for screening mammogram for malignant neoplasm of breast; Hives Start: 08-23-2023 End: 08-23-2023 Unlisted evaluation and management service Brock Crane MD Work Phone: [facility] Comment on above: OPENED IN ERROR (Kasandra aleta Dx) Start: 08-23-2023 End: 08-23-2023 ambulatory BROCK CRANE Facility:[id number] Start: 08-23-2023 Encounter for genera l adult medical examination without abnormal findings BROCK CRANE [facility] Start: 03-02-2023 Refill Brock Cruz MD Work Phone: [facility] Comment on above: Refill Request Start: 01-17-2023 Refill Brock Cruz MD Work Phone: [facility] Comment on above: Refill Request Start: 12-08-2022 Telephone encounter Brock Crane MD Work Phone: [facility] Comment on above: Erroneous encounter- disregard Start: 11-22-2022 Refill Brock Cruz MD Work Phone: [facility] Comment on above: Refill Request Start: 08-22-2022 End: 08-22-[address] Brock Crane Work Phone: [facility] Start: 08-21-2022 Patient encounter procedure [facility] Provider [facility] Department Start: 08-20-2022 End: 08-20-[address] Brock Crane Work Phone: [facility] Work Phone: Start: 08-20-2022 End: 08-20-[address] Brock Crane Work Phone: [facility] Start: 07-28-2022 End: 07-28-[address] Brock Crane Work Phone: [facility] Start: 06-06-2022 End: 06-06-2022 Office outpatient visit 15 minutes Brock Crane MD Work Phone: [facility] Comment on above: Primary osteoarthrit is of both knees (Primary Dx) Start: 05-25-2022 Telephone encounter Brock Crane MD Work Phone: [facility] Comment on above: Opened In Error Start: 05-25-2022 End: 05-25-2022 Office outpatient visit 15 minutes Brock Crane MD Work Phone: [facility] Comment on above: Anxiety (Primary Dx) Start: 12-10-2021 Refmarija Cruz MD Work Phone: [facility] Comment on above: Refill Request Start: 11-22-2021 Refill Brock Cruz MD Work Phone: [facility] Comment on above: Refill Request Procedures Date Procedure Procedure Detail Performing Clinician Start: 08-20-2022 MRI of joint of lowe r extremity Dr. Brock Crane Work Phone: Start: 07-28-2022 End: 07-28-2022 Radiologic examination of knee Dr. Brock Crane Work Phone: Plan of Treatment Date Care Activity Detail Author Start: 07-28-2025 Screening for malign ant neoplasm of cervix [facility] Start: 01-21-2024 Covid-19 Vaccine () Covid-19 Vaccine () [facility] Start: 01-21-2024 Influenza vaccination [facility] Start: 05-22-2023 Behavioral Health Screening Behavioral Health Screening [facility] Start: 01-20-2023 Covid-19 Vaccine ( season) Covid-19 Vaccine () [facility] Start: 01-20-2023 Influenza vaccination C [facility] Start: 2022 Mammography [facility] Start: 2022 Screening for malign ant neoplasm of breast Mammogram Screening [facility] Start: 05-22-2022 DEPRESSION ASSESSMENT DEPRESSION ASS ESSMENT [facility] Start: 01-20-2022 Influenza vaccination INFLUENZA (#1) [facility] Start: 11-27-2018 HPV TESTING HPV TESTING [facility] Start: 11-27-2018 Screening for malign ant neoplasm of cervix HPV Testing [facility] Start: 11-26-2018 PAP TESTING PAP TESTING [facility] Start: 2001 Hepatitis B Vaccine (1 of 3 - 19+ 3-dose series) Hepatitis B Vaccine (1 of 3 - 19+ 3-dose series) [facility] Start: 2001 Urine microalbumin profile [facility] Start: 2000 Depression Screening Depression Scre ening [facility] Start: 2000 HEPATITIS C SCREENING HEPATITIS C [facility] Start: 2000 Hepatitis C screening Hepatitis C [facility] Start: 2000 HIV SCREENING HIV SCREENING [facility] Start: 2000 HIV screening HIV Screening [facility] Start: 1994 Adult depression screening assessment DEPRESSION SCREENING [facility] Start: 06-22-1983 COVID-19 VACCINE (#1) COVID-19 VACCI NE (#1) [facility] Start: 1982 HEPATITIS B (1 of 3 - 3-dose series) HEPATITIS B (1 of 3 - 3-dose series) [facility] Start: 1982 Hepatitis B Vaccine (1 of 3 - 3-dose series) Hepatitis B Vaccine (1 of 3 - 3-dose series) [facility] Arthrocentesis aspir&/inj major jt/bursa w/o us DRAIN/INJECT LARGE JOINT/BURSA Procedures Routine Primary osteoarthritis of both knees Ordered: 06/06/2022 [facility] Work Phone: Comment on above: Ordered: 06/06/2022 End: 09-21-2024 MG Breast Screening OXANA SCREENING Radiology Routine Encounter for screening mammogram for malignant neoplasm of breast 1 Occurrences starting 08/23/2023 until 09/21/2024 [facility] Work Phone: Comment on above: 1 Occurrences starti ng 08/23/2023 until 09/21/2024 [facility] Payers Date Payer Category Payer Private Health Insurance [id number] 2024 Self-pay [id number] 2023 Unknown 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 [id number] Unknown [id number] Unknown [id number] Unknown [id number] Unknown [id number] Social History Date Type Detail Facility Start: 09-03-2012 End: 08-23-2023 Tobacco smoking status NHIS Never smoked tobacco [facility] Start: 09-03-2012 End: 08-23-2023 Tobacco use and exposure Smokeless tobacco non-user [facility] Start: 11-26-2013 End: 08-23-2023 Alcohol intake Current drinker of alcohol (finding) [facility] Start: 1980 Sex Assigned At Not on file [facility] Start: 08-22-2022 Tobacco smoking stat us LAIS Unknown if ever smoked [facility] Start: 1980 Sex Assigned At Female [facility] Start: 06-06-2022 End: 08-23-2023 History of Social function [facility] Start: 06-06-2022 End: 08-23-2023 Tobacco use panel [facility] National Score (1-100), lower number is lower risk 64 [facility] Has the [employer], [employer], [employer], or water [employer] threatened to shut off services in your home in past 12Mo No [facility] Are you now , , , , never or living with a partner? [facility] How often to you hav e a drink containing alcohol? Monthly or less [facility] How many standard drinks containing alcohol do you have on a typical day? 1 or 2 [facility] How often do you hav e 6 or more drinks on 1 occasion? Never [facility] Do you feel stress - tense, restless, nervous, or anxious, or unable to sleep at night because your mind is troubled all the time - these days [OSQ] Not at all [facility] (I/We) worried whe er (my/our) food would run out before (I/we) got money to buy more. Never true [facility] Start: 08-23-2023 Alcohol Comment rarely [facility] NEGATED: Highlighted rowStart: ADINA History of tobacco use Passive smoker [facility] Functional Status Date Assessment Result Facility 11-26-2013 Are you deaf, or do you have serious difficulty hearing No 11/26/2013 1:31 PM EDT Mavis Kim MA [facility] 11-26-2013 Are you blind, or do you have serious difficulty seeing, even when wearing glasses No 11/26/2013 1:31 PM EDT Mavis Kim MA [facility] 11-26-2013 Do you have serious difficulty walking or climbing stairs No 11/26/2013 1:31 PM EDT Mavis Kim MA [facility] 11-26-2013 Do you have difficul ty dressing or bathing No 11/26/2013 1:31 PM EDT Mavis Kim MA [facility] 11-26-2013 Because of a physica l, mental, or emotional condition, do you have difficulty doing errands alone such as visiting a physician's office or shopping No 11/26/2013 1:31 PM EDT Mavis Kim MA [facility] Mental Status Date Assessment Result Facility 11-26-2013 Because of a physica l, mental, or emotional condition, do you have serious difficulty concentrating, remembering, or making decisions No 11/26/2013 1:31 PM EDT Mavis Kim MA [facility] Clinical Notes 11-23-2021 to 09-04-2024 Telephone Encounter - Gerry Gonzalez LPN - 09/04/2024 7:52 AM EDTTelephone Encounter - Gerry Gonzalez LPN - 09/04/2024 7:52 AM EDTCSanchez francisco - 10/31/2023 7:53 AM EDT Note Date & Type Note Facility 09-04-2024 Telephone encount er Note Last Office Visit: 08/23/23 Next visit: none Requested Prescriptions Pending Prescriptions Disp Refills montelukast (SINGULAIR) 10 mg tablet [Pharmacy Med Name: MONTELUKAST SOD 10 MG TABLET] 90 tablet 3 Sig: TAKE 1 TABLET BY MOUTH EVERY DAY Gerry Gonzalez LPN September 04, 2024 7:53 AM [facility] 09-04-2024 Miscellaneous Notes Formattin g of this note is different from the original. Last Office Visit: 08/23/23 Next visit: none Requested Prescriptions Pending Prescriptions Disp Refills montelukast (SINGULAIR) 10 mg tablet [Pharmacy Med Name: MONTELUKAST SOD 10 MG TABLET] 90 tablet 3 Sig: TAKE 1 TABLET BY MOUTH EVERY DAY Gerry Gonzalez LPN September 04, 2024 7:53 AM documented in this encounter [facility] 10-31-2023 Note HNO ID: [id number] Author: ?, ?, ? Service: ? Author Type: ? Type: Progress Notes Filed: 10/31/2023 07:54 Note Text: Chart reviewed Annual Visit scheduled?: No Outreach needed: No Sanchez Sebastian October 31, 2023 7:54 AM [facility] 10-31-2023 History of Presen t illness Narrative Chart reviewed Annual Visit scheduled?: No Outreach needed: No Sanchez Sebastian October 31, 2023 7:54 AM documented in this encounter [facility] 10-31-2023 Note Patient Outreach (MR JUAREZ) ELYRICARDO Raman ([id number]) 1980 F Date Time Provider Department 10/31/23 SANCHEZ SEBASTIAN [facility] During your visit today, we recorded the [...] Encounter Status:Closed by SANCHEZ SEBASTIAN on 10/31/23 [facility] 08-24-2023 Note HNO ID: [id number] Author: BROKC CRANE MD Service: ? Author Type: Physician Type: Progress Notes Filed: 08/24/2023 10:56 Note Text: This encounter was opened in error. [facility] 08-24-2023 History of Presen t illness Narrative This encounter was opened in error. Patient in the office today for an annual Wellness exam. No refills needed today? Health Maintenance Due: Hepatitis C Screening HIV Screening DTaP,Tdap,Td Vaccine(1 - Tdap) Hepatitis B Vaccine(1 of 3 - 19+ 3-dose series) HPV Testing Mammogram Screening Covid-19 Vaccine( - season) Depression Assessment documented in this encounter [facility] 08-23-2023 Note HNO ID: [id number] Author: BROCK CRANE MD Service: ? Author [...] 48 gRfl: 5 meloxicam (MOBIC) 15 mg [id number] MG ORALLY DAILY FOR PAIN DO NOT [...] (Temporal) Resp 15 Ht 160 cm (5' 3) Wt 74.4 kg (164 lb 2 oz) [...] Follow-up in 6 months. Brock Crane MD [facility] 08-23-2023 History of Presen t illness Narrative [...] (Temporal) Resp 15 Ht 160 cm (5' 3) Wt 74.4 kg (164 lb 2 oz) [...] 2023 9:25 AM documented in this encounter [facility] 08-23-2023 Note HNO ID: [id number] Author: AGNES MCGOVERN LPN Service: ? Author Type: LICENSED NURSE Type: Progress Notes Filed: 08/24/2023 10:56 Note Text: Patient in the office today for an annual Wellness exam. No refills needed today? Health Maintenance Due: Hepatitis C Screening HIV Screening DTaP,Tdap,Td Vaccine(1 - Tdap) Hepatitis B Vaccine(1 of 3 - 19+ 3-dose series) HPV Testing Mammogram Screening Covid-19 Vaccine() Depression Assessment [facility] 08-23-2023 Note HNO ID: [id number] Author: AGNES MCGOVERN LPN Service: ? Author [...] Mcgovern LPN August 23, 2023 9:25 AM [facility] 01-17-2023 Miscellaneous Notes Formattin g of this note is different from the original. Rx mail pharmacy faxed requesting the following refill. Requested Prescriptions Pending Prescriptions Disp Refills fluticasone (FLONASE) 50 mcg/actuation nasal spray [Pharmacy Med Name: FLUTICASONE PROP NASAL SPRAY 16GM 50MCG] 48 g 5 Sig: USE 1 SPRAY IN EACH NOSTRIL DAILY NEEDED Patient last appointment: 06/06/2022 Patient Phone numbers: [phone] (home) [phone] (work) Request is for script(s) to be escript to mail order [facility]. Raquel Lopez LPN documented in this encounter [facility] 06-06-2022 History of Presen t illness Narrative This note was created using [employer]. Subjective Ricardo Graves is a 41 year old female. Presents with bilateral osteoarthritis of the knee with pain. She would like bilateral knee injections. Review of Systems All other systems reviewed and are negative. Objective BP 112/76 (BP Site: Left Arm, BP Position: Sitting, BP Cuff Size: Regular Adult) Pulse 80 Temp 36.4 C (97.5 F) (Temporal) Resp 16 Ht 160 cm (5' 3) Wt 61.5 kg (135 lb 8 oz) [...] 2022 8:19 AM documented in this encounter [facility] 05-25-2022 History of Presen t illness Narrative This note was created using First [employer]. Subjective Ricardo Graves is a 41 year [...] 2022 11:02 AM documented in this encounter [facility] 11-23-2021 Miscellaneous Notes Pharmacy faxed requesting the following refill. Pending Prescriptions Disp Refills FLUTICASONE PROPIONATE 50 MCG/ACTUATION NASAL SPRAY,SUSPENSION 48 g 5 Sig: USE 1 SPRAY IN EACH NOSTRIL DAILY NEEDED NELI: Yes Patient last appointment: Visit date not found Patient Phone numbers: [phone] (home) [phone] (work) Request is for script(s) to be escript to pharmacy. Raquel Lopez LPN documented in this encounter [facility] Evaluation note Diagnosis Anxiety- Primary Anxiety state, unspecified documented [facility]* Diagnosis Primary osteoarthritis of both knees- Primary Primary localized osteoarthrosis, lower leg documented in this encounter [facility] noteNo assessment information availableWAshtab[facility] Work Phone: Evaluation note* Diagnosis Wellness examination- Primary Screening for depression Allergic rhinitis due to pollen, unspecified seasonality Anxiety disorder, unspecified type Screening for deficiency anemia Screening for other and unspecified deficiency anemia Lipid screening Screening for lipoid disorders Encounter for screening mammogram for malignant neoplasm of breast Other screening mammogram Hives Urticaria, unspecified documented in this encounter [facility] note* Diagnosis OPENED IN ERROR- Primary To allow closing an encounter opened in error (used in SmartSet) documented in this encounter [facility]* Diagnosis Primary osteoarthritis of both knees Primary localized osteoarthrosis, lower leg Chronic pain of both knees documented in this encounter [facility] CenterReason for referral (narrative)* Diagnostic Procedure Only (Routine) - Denied Specialty Diagnoses / Procedures Referred By Contac t Referred To Contact [facility] Diagnoses Encounter for screening mammogram for malignant neoplasm of breast Procedures OXANA SCREENING SCREENING MAMMOGRAPHY BI 2-VIEW BREAST INC Brock Emmanuel MD [address] [place] [address] [facility] [address] [place] [address] Referral ID Status Reason Start Date Expiration Date V isits Requested Visits Authorized [id number] Denied Auto-Generated Referral Clearance Not Met -Financial Clearance Bypassed 08/23/2023 09/21/2024 1 0 [facility] Summary Purpose Family History Relationship Condition Age at Onset Recorded Date/T kirby grandmother Primary generalized hypertrophic osteoarthrosis Unknown Rheumatoid arthritis Unknown Congestive heart failure Unknown Chronic obstructive pulmonary disease Unk nown Hypertension Unknown Type 2 diabetes mellitus Unknown Advance Directives No Advanced Directives Records FoundNo Advanced Directives Records FoundNo Advanced Directives Records FoundNo Advanced Directives Records Found Chief Complaint and Reason for Visit Chief Complaint BI LAT KNEES Rm 3 LEFT KNEE PAIN LEFT KNEE Additional Source Comments INFORMATION SOURCE (unrecogn ized section and content) DATE CREATED AUTHOR 09/15/2021 [facility] [place] DATE CREATED AUTHOR AUTHOR'S ORGANIZ ATION 08/10/2023 [facility] DATE CREATED AUTHOR AUTHOR'S ORGANIZ ATION 11/01/2023 [facility] DATE CREATED AUTHOR AUTHOR'S ORGANIZ ATION 04/17/2024 [facility] Source Comments (unrecognize d section and content) In the event this informatio n is protected by the Federal Confidentiality of Alcohol and Drug Abuse Patient Records regulations: The Federal rules restrict any use of the information to criminally investigate or prosecute any alcohol or drug abuse patient.[facility] the event this information is protected by the Federal Confidentiality of Alcohol and Drug Abuse Patient Records regulations: The Federal rules restrict any use of the information to criminally investigate or prosecute any alcohol or drug abuse patient.[facility] Center[facility] the event this information is protected by the Federal Confidentiality of Alcohol and Drug Abuse Patient Records regulations: The Federal rules restrict any use of the information to criminally investigate or prosecute any alcohol or drug abuse patient.[facility] CenterIn the event this information is protected by the Federal Confidentiality of Alcohol and Drug Abuse Patient Records regulations: The Federal rules restrict any use of the information to criminally investigate or prosecute any alcohol or drug abuse patient.[facility] CenterIn the event this information is protected by the Federal Confidentiality of Alcohol and Drug Abuse Patient Records regulations: The Federal rules restrict any use of the information to criminally investigate or prosecute any alcohol or drug abuse patient.[facility] CenterIn the event this information is protected by the Federal Confidentiality of Alcohol and Drug Abuse Patient Records regulations: The Federal rules restrict any use of the information to criminally investigate or prosecute any alcohol or drug abuse patient.[facility] CenterIn the event this information is protected by the Federal Confidentiality of Alcohol and Drug Abuse Patient Records regulations: The Federal rules restrict any use of the information to criminally investigate or prosecute any alcohol or drug abuse patient.[facility] CenterIn the event this information is protected by the Federal Confidentiality of Alcohol and Drug Abuse Patient Records regulations: The Federal rules restrict any use of the information to criminally investigate or prosecute any alcohol or drug abuse patient.[facility] CenterIn the event this information is protected by the Federal Confidentiality of Alcohol and Drug Abuse Patient Records regulations: The Federal rules restrict any use of the information to criminally investigate or prosecute any alcohol or drug abuse patient.[facility] CenterIn the event this information is protected by the Federal Confidentiality of Alcohol and Drug Abuse Patient Records regulations: The Federal rules restrict any use of the information to criminally investigate or prosecute any alcohol or drug abuse patient.[facility] CenterIn the event this information is protected by the Federal Confidentiality of Alcohol and Drug Abuse Patient Records regulations: The Federal rules restrict any use of the information to criminally investigate or prosecute any alcohol or drug abuse patient.[facility] CenterIn the event this information is protected by the Federal Confidentiality of Alcohol and Drug Abuse Patient Records regulations: The Federal rules restrict any use of the information to criminally investigate or prosecute any alcohol or drug abuse patient.[facility] CenterIn the event this information is protected by the Federal Confidentiality of Alcohol and Drug Abuse Patient Records regulations: The Federal rules restrict any use of the information to criminally investigate or prosecute any alcohol or drug abuse patient.[facility] CenterIn the event this information is protected by the Federal Confidentiality of Alcohol and Drug Abuse Patient Records regulations: The Federal rules restrict any use of the information to criminally investigate or prosecute any alcohol or drug abuse patient.[facility] CenterIn the event this information is protected by the Federal Confidentiality of Alcohol and Drug Abuse Patient Records regulations: The Federal rules restrict any use of the information to criminally investigate or prosecute any alcohol or drug abuse patient.[facility] CenterIn the event this information is protected by the Federal Confidentiality of Alcohol and Drug Abuse Patient Records regulations: The Federal rules restrict any use of the information to criminally investigate or prosecute any alcohol or drug abuse patient.[facility] CenterIn the event this information is protected by the Federal Confidentiality of Alcohol and Drug Abuse Patient Records regulations: The Federal rules restrict any use of the information to criminally investigate or prosecute any alcohol or drug abuse patient.[facility] Reason for Visit (unrecogniz ed section and content) Reason Comments Refill Request Reason Onset Date Comments Refill Request 12/10/2021 Reason Comments Opened In Error Reason Comments 6 Month Exam Reason Comments Follow Up Reason Comments Erroneous encounter-disregard Reason Comments Wellness Specialty Diagnoses / Procedures Referred By Contac t Referred To Contact [facility] Diagnoses Encounter for screening mammogram for malignant neoplasm of breast Procedures OXANA SCREENING SCREENING MAMMOGRAPHY BI 2-VIEW BREAST INC CAD Brock Crane MD [address] [place] [address] [facility] [address] [place] [address] Referral ID Status Reason Start Date Expiration Date V isits Requested Visits Authorized [id number] Denied Auto-Generated Referral Clearance Not Met -Financial Clearance Bypassed 08/23/2023 09/21/2024 1 0 Reason Onset Date Comments Opened In Error 08/24/2023 Specialty Diagnoses / Procedures Referred By Contac t Referred To Contact Family Medicine / FAMILY MEDICINE Diagnoses Well adult exam wellness Procedures WELLNESS EXAMS EST 40-64 YRS EST WELL VISIT Self Brock Crane MD [address] [place] [address] Referral ID Status Reason Start Date Expiration Date Visits Requested Visits Authorized [id number] Denied Financial Clearance Required - OON Payor OON Notification Letter Clearance Not Met - Admin/Saturator/D irector Advise to Postpone/Resched ule or Not Proceed 08/23/2023 11/21/2023 1 0 Reason Onset Date Comments Appointment 10/31/2023 Called and [place] eduled wellness Care Teams (unrecognized sec tion and content) Com Writer Relationship Specialty Start Date End Date Brock Crane MD PCP - General Family Practice 08/07/12 Com Writer Relationship Specialty Start Date End Date Brock Crane MD PCP - General Family Practice 08/07/12 Com Writer Relationship Specialty Start Date End Date Brock Crane MD PCP - General Family Medicine 08/07/12 Com Writer Relationship Specialty Start Date End Date Brock Crane MD PCP - General Family Medicine 08/07/12 Com Writer Relationship Specialty Start Date End Date Brock Crane MD PCP - General Family Medicine 08/07/12 Team Status: Active Member Role Status Dates Dr. Brock Crane MD Family Provider Active Dr. Brock Crane MD Primary Care Provider Active Team Status: Inactive Member Role Status Dates Dr. Brock Crane MD Primary Care Provider, Referrin g Provider Active NINI Cage Attending Provider Active Team Status: Inactive Member Role Status Dates Dr. Brock Crane MD Primary Care Provider Active Dr. Saleem Bloom MD Attending Provider Active Team Status: Inactive Member Role Status Dates Dr. Brock Crane MD Primary Care Provider Active NINI Cage Attending Provider, Referring Provi wyatt Active Com Writer Relationship Specialty Start Date End Date Brock Crane MD PCP - General Family Medicine 08/07/12 Com Writer Relationship Specialty Start Date End Date Brock Crane MD PCP - General Family Medicine 08/07/12 Com Writer Relationship Specialty Start Date End Date Brock Craen MD PCP - General Family Medicine 08/07/12 Com Writer Relationship Specialty Start Date End Date Brock Crane MD PCP - General Family Medicine 08/07/12 Com Writer Relationship Specialty Start Date End Date Brock Crane MD PCP - General Family Medicine 08/07/12 Com Writer Relationship Specialty Start Date End Date Brock Crane MD PCP - General Family Medicine 08/07/12 Com Writer Relationship Specialty Start Date End Date Brock Crane MD PCP - General Family Medicine 08/07/12 Com Writer Relationship Specialty Start Date End Date Brock Crane MD PCP - General Family Medicine 08/07/12 Goals (unrecognized section and content) Goals may be documented in a n alternate section Inactive Administered Medications - up to 3 [...] BE BASED ON THE PRIMARY CLINICAL RECORDS. [employer]. provides no warranty or guarantee of the accuracy or completeness of information in this document.
== END | disposition home or self-care (01) ==
LOC: MTLAB 09:24
PROVIDERS: PCP Nurse Practitioner Family; Referring Provider Nurse Practitioner Family; Visit Provider Nurse Practitioner Family
DX: Z00.01 Encounter for general adult medical examination with abnormal findings (principal); M54.50 Low back pain, unspecified; Z83.49 Family history of other endocrine, nutritional and metabolic diseases
CPT/HCPCS: 36415; 72110; 80053; 80061; 84439; 84443; 85025